=== PATIENT | male | born 1950 | race Caucasian/White ===

== ENCOUNTER 2018-10-02 13:19 | Inpatient (IN) | payer MEDICARE ==
[~2018-10-02] VITALS: Ht 180.3 cm; Wt 78.5 kg
--- NOTE | 2018-10-02 13:32 | NUR ---
DR VO AT BEDSIDE FOR EVAL.
[2018-10-02] MEDS ORDERED: IV NS 0.9% 250 ML IV ONE ×2 (13:33→15:25)
[2018-10-02] MEDS ORDERED: CT SWABBABLE VALVE TRANS SET 1 EA INFUS.SET MC ONE ×2 (13:33→15:25)
[2018-10-02] MEDS ORDERED: IOHEXOL-350 100 ML VIAL IV ONE ×2 (13:33→15:25)
[2018-10-02 14:00] LABS: BASOPHILS % (AUTO) 0.2 % (0.0-2.0); HEMATOCRIT 39 % (39-51); HEMOGLOBIN 12.2 g/dL (13.5-17.5); LYMPHOCYTES # (AUTO) 0.3 /CMM (0.8-4.8); LYMPHOCYTES % (AUTO) 1.7 % (20.0-44.0); MEAN CORPUSCULAR HGB CONC 31 g/dl (31.0-36.0); MEAN CORPUSCULAR VOLUME 88 fL (80-96); MONOCYTES # (AUTO) 0.7 /CMM (0.1-1.30); MONOCYTES % (AUTO) 3.4 % (2.0-12.0); NEUTROPHILS # (AUTO) 18.6 /CMM (1.8-8.9); NEUTROPHILS % (AUTO) 94.7 % (43.0-81.0); PLATELET COUNT (AUTO) 182 /CMM (150-450); WHITE BLOOD COUNT (AUTO) 19.6 K/uL (4.3-11.0)
[2018-10-02 14:14] LABS: BILIRUBIN,DIRECT 0.6 mg/dL (0.0-0.2); BILIRUBIN,TOTAL 1.1 mg/dL (0.2-1.0); CALCIUM, SERUM 9.2 mg/dL (8.5-10.1); TOTAL PROTEIN, SERUM 7.1 g/dL (6.4-8.2)
[2018-10-02 14:17] LABS: CREATININE 8.4 mg/dL (0.6-1.3)
[2018-10-02] MEDS: CALCIUM CHLORIDE 1,000 MG/10 ML DISP.SYRIN IV ONE ×2 (14:25→14:53)
[2018-10-02] MEDS: INSULIN REGULAR, HUMAN 100 UNIT/ML 10 ML VIAL IV ONE ×2 (14:27→14:54)
--- NOTE | 2018-10-02 14:27 | NUR ---
DR MOREAU AT BEDSIDE FOR EVAL.
[2018-10-02] MEDS ORDERED: SODIUM BICARBONATE SYR 50 MEQ/50 ML DISP.SYRIN IV ONE (14:30)
[2018-10-02] MEDS ORDERED: DEXTROSE 50%-WATER 50 ML DISP.SYRIN IV ONE (14:30)
[2018-10-02] MEDS ORDERED: CALCIUM CHLORIDE 1,000 MG/10 ML DISP.SYRIN ONE (14:40)
[2018-10-02] MEDS ORDERED: DEXTROSE 50%-WATER 50 ML DISP.SYRIN ONE (14:40)
[2018-10-02] MEDS ORDERED: SODIUM BICARBONATE SYR 50 MEQ/50 ML DISP.SYRIN ONE (14:40)
[2018-10-02] MEDS ORDERED: INSULIN REGULAR, HUMAN 100 UNIT/ML 10 ML VIAL ONE (14:42)
--- NOTE | 2018-10-02 15:10 | NUR ---
PER MD MOREAU CANCELED CODE STROKE AT 1442
--- NOTE | 2018-10-02 15:19 | NUR ---
CALLED NURSING SUP REQUESTED CHADD BED FOR THIS PATIENT
--- NOTE | 2018-10-02 15:20 | NUR ---
PT TO RADIOLOGY FOR CTA BRAIN AND CAROTID VIA JAMES
--- NOTE | 2018-10-02 15:58 | NUR ---
DR MOREAU MADE AWARE OF PT'S B/P. AWAITING ON NEW ORDER.
[2018-10-02] MEDS ORDERED: LABETALOL HCL IV 100MG VIAL IV ONE (16:00)
[2018-10-02] MEDS ORDERED: LABETALOL 20 MG/4 ML VIAL ONE (16:01)
--- NOTE | 2018-10-02 16:10 | NUR ---
Julián rocha in [facility] - 10/02/18 at 1620 by JULIO PT ADMIT TO ROOM 118-1 DX DIZZINESS R/O STROKE ACCEPTED BARBARA
--- NOTE | 2018-10-02 16:20 | NUR ---
PT ADMIT TO CHADD BED 118-1 DX NSTEMI, RENAL FAILURE, HYPERKALEMIA ACCEPTED KERZUMA DO
--- NOTE | 2018-10-02 16:22 | NUR ---
REPORT GIVEN TO AARON LYN. PT AWAITING TRANSFER TO FLOOR.
[2018-10-02] MEDS ORDERED: Z GUARD REMEDY 2 OZ OINT TP PRN (16:30)
[2018-10-02] MEDS ORDERED: ONDANSETRON HCL/PF 4 MG/2 ML VIAL IVP PRN (16:30)
[2018-10-02] MEDS ORDERED: ZOLPIDEM TARTRATE 5 MG TABLET PO PRN (16:30)
[2018-10-02] MEDS ORDERED: SODIUM POLYSTYRENE SULF. PWD 15 GM UDC PO ONE (16:30)
[2018-10-02] MEDS ORDERED: MAGNESIUM HYDROXIDE 30 ML UDC PO PRN (16:30)
[2018-10-02] MEDS ORDERED: ACETAMINOPHEN 325 MG TABLET PO PRN (16:30)
[2018-10-02] MEDS ORDERED: MAG HYDROX/AL HYDROX/SIMETH 30 ML UDC PO PRN (16:30)
[2018-10-02 17:00] VITALS: BP 134/79
[2018-10-02 19:45] VITALS: BP 155/99
[2018-10-02 20:00] VITALS: BP 155/99
--- NOTE | 2018-10-02 20:05 | NUR ---
CHADD/WORKDAY DIRECTOR PT IS HERE WITH PULMONARY EDEMA, PT MISSED 2 WEEKS OF HD. PT TO HAVE HD CURRENTLY WITH HD NURSE HERE NOW. ALL CURRENT LABS WERE GIVEN.
--- NOTE | 2018-10-02 20:30 | NUR ---
CHADD/LIMEROCK TOWER LOADER PT'S TROP INCREASED TO 10.238 FROM 9.63, PLACED CALL OUT TO COAT ROOM ATTENDANT WHO SAID TO GIVE PT ASPIRIN 325MG X 1 NOW THEN TO HAVE CARDIOLOGY FOLLOW UP WITH PT. ORDERS NOTED AND CARRIED OUT
[2018-10-02] MEDS ORDERED: ALTEPLASE 100 MG/VIAL VIAL IV ONE (21:00)
[2018-10-02] MEDS ORDERED: ALTEPLASE CATHFLO 2 MG/VIAL ONE (21:07)
--- NOTE | 2018-10-02 21:10 | NUR ---
CHADD/MARKETING FINANCIAL ANALYST HD NURSE SAID THAT LINE IS SLUGGISH, WHICH REQUIRED TO BE DECLOTTED WITH ALTAPAISE AND HEPARIN. ORDERS WERE NOTED BY CHARGE NURSE ABD FAXED OVER TO [facility]. HD NURSE WAS GIVEN MEDICATION.
[2018-10-02] MEDS: ASPIRIN EC 325 MG TABLET.DR PO SCH (21:13)
[2018-10-02] MEDS ORDERED: HEPARIN SODIUM, PORCINE 5000 UNITS/1 ML VIAL IV ONE (21:30)
--- NOTE | 2018-10-02 22:55 | NUR ---
CHADD/ANDRE PT COMPLAINED HE LOST HIS CELLPHONE, LOOKED THROUGH BELONGINGS AND DID NOT FIND IT. Addendum: 10/03/18 at 0154 by BROOK COLLAZO LVN NOT NOTED ON BELONGINGS
[2018-10-03] VITALS (13 sets, daily range): BP systolic 102–169; BP diastolic 57–98
[2018-10-03 00:22] LABS: ABG OXYGEN SATURATION 97.2 % (92.0-98.5); ABG PCO2 19.4 mmHg (35.0-45.0); ABG PH 7.464 (7.350-7.450); AaDO2 289.5 mmHg; COHb 0.3 % (0.5-1.5); MetHb 0.4 % (0.0-1.5); O2Hb 96.5 % (94.0-97.0); SITE, ABG Right Radial; VENT MODE, BG SM
--- NOTE | 2018-10-03 00:30 | NUR ---
CHADD/AIRWORTHINESS SAFETY INSPECTOR ABG AND STAT CHEST XRAY WERE DONE DUE TO PT'S LOW SAT'S, THEN CALLED MD WITH RESULTS. PLACED PT ON SIMPLE MASK, ALONG WITH CONTINUOUS PULSE OX. ALSO PLACED BEUR HUGGER DUE TO FINGERS WERE BLUISH COLOR. ALSO GOT ORDER FOR BREATHING TREATMENT.
[2018-10-03] MEDS ORDERED: ALBUTEROL FS 2.5 MG/0.5 ML VIAL.NEB ONE (00:56)
[2018-10-03] MEDS ORDERED: IPRATROPIUM NEB FS 0.5 MG/2.5 ML AMPUL.NEB ONE (00:56)
[2018-10-03] MEDS: ALBUTEROL FS 2.5 MG/0.5 ML VIAL.NEB NEB PRN (00:58)
[2018-10-03] MEDS ORDERED: IPRATROPIUM NEB FS 0.5 MG/2.5 ML AMPUL.NEB NEB PRN (01:00)
--- NOTE | 2018-10-03 01:42 | NUR ---
CHADD/FUNDS TRANSFER CLERK PT COMPLAINED OF PAIN RATED 7/10 TO BACK AREA. NORCO 1 TAB GIVEN FOR THIS. CALL LIGHT WITHIN REACH. WILL MONITOR PT'S PAIN.
[2018-10-03] MEDS: HYDROCODONE/APAP 5/325MG 1 EACH TABLET PO PRN ×2 (02:17→06:23)
--- NOTE | 2018-10-03 06:23 | NUR ---
CHADD/PICKED EDGE SEWING MACHINE OPERATOR PT COMPLAINED OF PAIN RATED 7/10 TO BACK AREA. NORCO 1 TAB GIVEN FOR THIS. CALL LIGHT WITHIN REACH. WILL MONITOR PT'S PAIN.
[2018-10-03] MEDS ORDERED: PANTOPRAZOLE 40 MG TABLET.DR PO SCH (07:30)
--- NOTE | 2018-10-03 08:00 | NUR ---
On am assessment pt found to be lethargic, wakes up to repeated sternal rub. Very confused, oriented to self only. Follows commands, but drifts off to sleep quickly. NIHSS stk scale performed but limited due to bilateral upper and lower extremities shaky and weak. Dr Jo by bedside. Pt condition and labs from yesterday discussed with Dr Henry, this am labs still pending. As per dr Nina, ALOC due to elevated BUN/CR, not CVA. pt assisted with breakfast. but noted to cough frequently, remaining of breakfast held. will try post HD when more alert.
[2018-10-03 08:14] LABS: BASOPHILS % (AUTO) 0.3 % (0.0-2.0); EOSINOPHILS % (AUTO) 0.7 % (0.0-6.0); HEMATOCRIT 34 % (39-51); LYMPHOCYTES # (AUTO) 0.2 /CMM (0.8-4.8); LYMPHOCYTES % (AUTO) 1.3 % (20.0-44.0); MEAN CORPUSCULAR HGB CONC 32 g/dl (31.0-36.0); MEAN CORPUSCULAR VOLUME 85 fL (80-96); MONOCYTES # (AUTO) 0.5 /CMM (0.1-1.30); MONOCYTES % (AUTO) 3.2 % (2.0-12.0); NEUTROPHILS # (AUTO) 15.6 /CMM (1.8-8.9); NEUTROPHILS % (AUTO) 94.5 % (43.0-81.0); PLATELET COUNT (AUTO) 84 /CMM (150-450); RED BLOOD CELL COUNT(AUTO) 4.04 MIL/uL (4.5-6.0); WHITE BLOOD COUNT (AUTO) 16.5 K/uL (4.3-11.0)
[2018-10-03 08:33] LABS: CHOLESTEROL 141 mg/dL (<200); LDL 65 mg/dL (0-99); TRIGLYCERIDES 260 mg/dL (30-150)
[2018-10-03 08:42] LABS: CALCIUM, SERUM 8.2 mg/dL (8.5-10.1); CARBON DIOXIDE 14 mmol/L (21-32); CHLORIDE 108 mmol/L (98-107); GLUCOSE 91 mg/dL (74-106); MAGNESIUM 2.4 mg/dL (1.8-2.4); POTASSIUM 5.6 mmol/L (3.5-5.1); SODIUM SERUM 142 mmol/L (136-145)
[2018-10-03 08:44] LABS: CREATININE 8.4 mg/dL (0.6-1.3); UREA NITROGEN, BLOOD 128 mg/dL (7-18)
[2018-10-03 08:46] LABS: BAND % (MANUAL) 2 % (0.0-5.0); EOSINOPHILS % (MANUAL) 1 % (0-4); LYMPHOCYTES % (MANUAL) 3 % (16-48); MONOCYTES % (MANUAL) 2 % (0-11.0); NEUTROPHILS % (MANUAL) 92 (42-76)
[2018-10-03 08:51] LABS: HDL CHOLESTEROL < 10 mg/dL (40-60)
[2018-10-03] MEDS: ASPIRIN EC 325 MG TABLET.DR PO SCH (09:52)
[2018-10-03] MEDS ORDERED: HEPARIN INFUSION/D5W 500 ML IV PRN (10:00)
--- NOTE | 2018-10-03 10:00 | NUR ---
Dr. Truong here to see pt. Heparin gtt ordered ACS protocol field out and faxed to the pharmacy. Dr Truong notified that patient platelets are low, but Dr Truong with heparin gtt initiation.
--- NOTE | 2018-10-03 10:20 | NUR ---
Due to pt weigh on ACS protocol bolus 6,160 units and hourly infusion 1,320 units ate above that max. Per Pharmacy request bolus adjusted to 5000 and rate to 1200. refaxed to pharmacy.
[2018-10-03 10:50] LABS: THYROID STIMULATING HORMONE 1.092 uIU/mL (0.358-3.74)
--- NOTE | 2018-10-03 11:00 | NUR ---
Juany for pharmacy called. as per Dr. Truong D/C Heparin gtt due to low platelets. Heparin gtt will not be initiated.
[2018-10-03 11:20] LABS: ALBUMIN 2.3 g/dL (3.4-5.0); BILIRUBIN,DIRECT 0.6 mg/dL (0.0-0.2); BILIRUBIN,TOTAL 1.7 mg/dL (0.2-1.0); TOTAL PROTEIN, SERUM 5.6 g/dL (6.4-8.2)
[2018-10-03] MEDS ORDERED: CEFTRIAXONE 1 G in IV D5W 50 ML IV SCH (12:00)
[2018-10-03] MEDS: METOPROLOL TARTRATE 25 MG TABLET PO SCH ×2 (12:00→18:00)
--- NOTE | 2018-10-03 12:00 | NUR ---
Pt was initiated on HD at 1100 am interrupted to to machine malfunction at 1200. no fluid taken off.
--- NOTE | 2018-10-03 12:40 | NUR ---
Pt noted to be mote lethargic and only wakes up due to painful stimuli. rr 40th and shallow. but upon awakening denied sob, denied chest pain. Dr. Severino notified ok to obtain abg.
--- NOTE | 2018-10-03 13:03 | NUR ---
ABG resulted discussed with Dr Navarro. Continue to monitor for now, reassess post HD.
[2018-10-03 13:07] LABS: ABG BASE EXCESS -8.9 mmol/L; ABG OXYGEN SATURATION 97.8 % (92.0-98.5); ABG PH 7.415 (7.350-7.450); ABG PO2 138.2 mmHg (75.0-100.0); AaDO2 193.6 mmHg; COHb 0.3 % (0.5-1.5); MetHb 0.7 % (0.0-1.5); O2Hb 96.8 % (94.0-97.0); SITE, ABG Left Radial; VENT MODE, BG 5l nc
--- NOTE | 2018-10-03 16:01 | NUR ---
Post hd pt continues to be extremely lethargic, with barb-stroke resp in . BP 102/59, hr 72 sat 100% on 4lnc. Dr. Herrera notified new orders obtained. Dr Navarro consulted ands see pt. He discussed pt situation with Dr Herrera. Dr Nina pageannetta.
--- NOTE | 2018-10-03 18:00 | NUR ---
1200 AND 1800 LOPRESSOR HELD PT TOO ALTERED TO TAKE PO.
--- NOTE | 2018-10-03 18:34 | NUR ---
CT head completed Pt. tolerated procedure well. Pt transferred to ICU room 257. Wallet, carrera and jurado sent to safe.
[2018-10-03] MEDS: AZITHROMYCIN 500 MG in IV D5W 250 ML IV SCH (18:42)
[2018-10-03] MEDS: PIPERACILLIN /TAZOBACTAM 2.25 G in IV D5W 50 ML IV SCH (18:44)
--- NOTE | 2018-10-03 18:50 | NUR ---
DURING REPOSITIONING PT APPEARS HOT TO TOUCH TEMP 102.5 RECTAL COOLING MEASURES INITIATED TYLENOL RECTAL ORDERED, PT. IS TO ALTERED TO TAKE PO. WILL ADMINISTER LITO.
[2018-10-03] MEDS ORDERED: ACETAMINOPHEN 650 MG/SUPP.RECT RC PRN (19:30)
--- NOTE | 2018-10-03 19:41 | NUR ---
PT MEDICATED WITH RECTAL TYLENOL. EMMANUEL UPDATED ORDER FOR VANCO IV PHARM. TO DOSE PLACED. NEPHROLOGY GROUP PAGED VIA EXCHANGE.
--- NOTE | 2018-10-03 20:00 | NUR ---
RN NOTES RECEIVED PT ASLEEP ON BED. NO ACUTE RESPIRATORY DISTRESS. WARM TO TOUCH, FEBRILE ON CORE TEMP. 102 DEG FHARENHEIGHT MOAN TO NAME. FOLLOWS COMMAND. BY SQUEEZING HAND AND TRIED TO RAISE BUE AND BLE. ZERO FLACC. NSR ON TELE MONITOR. IV SITE ON ERNESTO MIDLINE INTACT AND PATENT/ RCW HD CATH IS CLEANED AND DRY. COTNINEU TO MONITOR PATIENT FOR LETHARGY/TIA/NSTEMI LAST TROPONIN LEVEL WAS 7.921 D.Halie BREWER AWARE PER PREVIOUS NURSE. DNEIES CHEST PAIN. KEPT PT CLEAN AND COMFORTABLE IN BED. CALL LIGHT KEPT WITHIN EASY REACH. WILL CONTINUE TO MONITOR.
[2018-10-03] MEDS ORDERED: VANCOMYCIN 1 GM VIAL ONE (21:23)
[2018-10-03] MEDS ORDERED: VANCOMYCIN 1 GM in IV D5W 250ml IV SCH (22:00)
[2018-10-04] VITALS (53 sets, daily range): BP systolic 86–148; BP diastolic 39–88
[2018-10-04] MEDS: PIPERACILLIN /TAZOBACTAM 2.25 G in IV D5W 50 ML IV SCH ×3 (01:02→17:35)
--- NOTE | 2018-10-04 04:43 | NUR ---
RN NOTES BED BATH DONE DIALYSIS NURSE CAME ANS STARTED DIALYSIS. PT IS MORE AWAKE ALERT AND ORIENTED. VSS. WILL CONTINUE TO MONITOR.
[2018-10-04 04:44] LABS: BASOPHILS # (AUTO) 0.1 /CMM (0.0-0.2); BASOPHILS % (AUTO) 0.4 % (0.0-2.0); EOSINOPHILS % (AUTO) 0.3 % (0.0-6.0); HEMATOCRIT 36 % (39-51); HEMOGLOBIN 11.6 g/dL (13.5-17.5); LYMPHOCYTES # (AUTO) 0.4 /CMM (0.8-4.8); LYMPHOCYTES % (AUTO) 3.1 % (20.0-44.0); MEAN CORPUSCULAR HGB CONC 32 g/dl (31.0-36.0); MEAN CORPUSCULAR VOLUME 85 fL (80-96); MONOCYTES # (AUTO) 0.7 /CMM (0.1-1.30); MONOCYTES % (AUTO) 5.3 % (2.0-12.0); NEUTROPHILS # (AUTO) 12.2 /CMM (1.8-8.9); NEUTROPHILS % (AUTO) 90.9 % (43.0-81.0); RED BLOOD CELL COUNT(AUTO) 4.26 MIL/uL (4.5-6.0); WHITE BLOOD COUNT (AUTO) 13.5 K/uL (4.3-11.0)
[2018-10-04 04:50] LABS: PLATELET COUNT (AUTO) 34 /CMM (150-450)
[2018-10-04 04:57] LABS: ALBUMIN 1.8 g/dL (3.4-5.0); BILIRUBIN,TOTAL 2.2 mg/dL (0.2-1.0); CALCIUM, SERUM 7.8 mg/dL (8.5-10.1); MAGNESIUM 2.3 mg/dL (1.8-2.4); PHOSPHORUS 5.9 mg/dL (2.5-4.9); POTASSIUM 5.4 mmol/L (3.5-5.1); TOTAL PROTEIN, SERUM 5.2 g/dL (6.4-8.2)
[2018-10-04 05:01] LABS: CREATININE 7.8 mg/dL (0.6-1.3)
[2018-10-04 05:09] LABS: LYMPHOCYTES % (MANUAL) 3 % (16-48); MONOCYTES % (MANUAL) 3 % (0-11.0); NEUTROPHILS % (MANUAL) 94 (42-76)
[2018-10-04] MEDS: METOPROLOL TARTRATE 25 MG TABLET PO SCH ×2 (06:00)
--- NOTE | 2018-10-04 06:50 | NUR ---
RN NOTES 06:17 AM - RECEIVED A CALL FROM LAB REGARDING CRITICAL VALUE OF TROPONIN 8.[address] VILLANUEVA TO WAIT FOR AUTOMOTIVE SALES ASSOCIATE AND PRIMARY TO SEE THE HIP. 06:42 AM - WHEN DIALYSIS IS ABOUT TO FINISH PATIENT CONVERTED TO SVT 150'S - 160'S THEN ON AND OFF, DIALYSIS FINISHED AT 06:35 REMOVED 1500. PT STARTED TO GET LETHARGIC UNABLE TO FOLLOW COMMAND. INFORMED DR. BREWER REGARDING PATIENT STATUS AND EKG RESULT AND TROPONIN 8.129.
--- NOTE | 2018-10-04 07:00 | NUR ---
RN NOTES ENDORSED TO FOLLOW UP MD REGARDING PATIENT METOPROLOL, UNABLE TO GIVE PO MEDS DUE TO LETHARGY / HIGH ASPIRATION.
[2018-10-04 08:01] LABS: ABG BASE EXCESS -5.1 mmol/L; ABG OXYGEN SATURATION 96.5 % (92.0-98.5); ABG PCO2 24.9 mmHg (35.0-45.0); ABG PH 7.456 (7.350-7.450); ABG PO2 93.8 mmHg (75.0-100.0); COHb 0.7 % (0.5-1.5); O2Hb 94.9 % (94.0-97.0); SITE, ABG Left Brachial; VENT MODE, BG 4L/MIN N/C
[2018-10-04] MEDS ORDERED: FEE PK DOSING 1 MIN EA MC ONE (08:10)
--- NOTE | 2018-10-04 08:18 | NUR ---
WOUND CARE CONSULT: PT IS IMMOBILE WITH DUSKY COLOR TO BILATERAL FEET AND PURPLE DRY LESIONS TO RT ANTERIOR LOWER LEG AND LEFT LATERAL LOWER LEG, PRESENT ON ADMISSION. RT BUTTOCK BRUISE AND LEFT PLANTAR FISSURE NOTED, NO DRAINAGE OR ODOR. RECOMMENDATIONS MADE FOR SKIN PROTECTION. DISCUSSED WITH NURSING STAFF. FIRST STEP LOW AIRLOSS MATTRESS ORDERED. WILL SEE PRN. ACRTER IN AGREEMENT WITH PLAN OF CARE. Addendum: 10/04/18 at 0822 by NATALIE BOLIVAR WNDNU Amended: Links added.
[2018-10-04] MEDS: LACTOBACILLUS RHAMNOSUS GG 1 EACH CAP.SPRINK PO SCH ×2 (09:00→17:00)
[2018-10-04 09:15] LABS: CALCIUM, SERUM 8.2 mg/dL (8.5-10.1); CREATININE 6.8 mg/dL (0.6-1.3); POTASSIUM 5.4 mmol/L (3.5-5.1)
[2018-10-04] MEDS ORDERED: PANTOPRAZOLE 40 MG VIAL IV SCH (11:00)
[2018-10-04] MEDS: ACETAMINOPHEN 650 MG/SUPP.RECT RC PRN (11:56)
--- NOTE | 2018-10-04 12:00 | NUR ---
PT SPIKED A TEMP OF 101.1 RECTAL TYLENOL AND COOLING MEASURES INITIATED.
[2018-10-04] MEDS: AZITHROMYCIN 500 MG in IV D5W 250 ML IV SCH (12:12)
--- NOTE | 2018-10-04 12:20 | NUR ---
BLOOD CULT. PRELIMINARY RESULT SHOW GR.POS COCCI. EMMANUEL NOTIFIED NO NEW ORDERS. PT ALREADY ON VANCO.
[2018-10-04 12:38] LABS: D-DIMER > 35.20 mg/L(FEU (0.17-0.50)
--- NOTE | 2018-10-04 15:45 | NUR ---
PT OPENS EYES SPONTANEOUSLY ABLE TO ANSWER SIMPLE QUESTIONS, FOLLOWS COMMANDS BUT VERY WEAK.
[2018-10-04] MEDS: VANCOMYCIN 500 MG in IV D5W 100 ML IV PRN (15:46)
--- NOTE | 2018-10-04 16:28 | NUR ---
DR GRANDA NOTIFIED THAT PT IS OPENS EYES SPONTANEOUSLY. FOLLOWS COMMANDS. OK TO DC STAT CT FOR NOW.
--- NOTE | 2018-10-04 20:30 | NUR ---
RN NOTES RECEIVED PT RESTING ON BED/ BREATHING EVEN AND UNLABORED. AOX2 ABLE TO FOLLOW COMMAND. ABLE TO MOVE BUT WEAKNESSES PRESENT ON BUE AND BLE . ST 110'S - 120'S ON TELEMONITOR. AFEBRILE TEMP 98.9 AT THIS TIME WILL CONTINUE TO MONITOR DUE TO ON AND OFF FEVER. ERNESTO MIDLINE INTACT AND PATENT RCW HD CATH CLEAN AND DRY. NO ACTIVE BLEEDING SHOWS. SKIN CARE PROVIDED. KEPT PT CLEAN AND COMFORTABLE IN BED. BED LOCKED AND IN LOWEST POSSIBLE POSITION. WILL CONTINUE TO MONITOR.
--- NOTE | 2018-10-04 20:40 | NUR ---
RN NOTES AFIB WITH RVR ON TELE MONITOR 110'S TO 120'S. NO ACUTE RESPIRATORY DISTRESS. PT IS AOX3 DENIES CHEST PAIN, DIZZINESS. NO N/V/D.
[2018-10-05] VITALS (41 sets, daily range): BP systolic 97–159; BP diastolic 55–93
[2018-10-05] MEDS: PIPERACILLIN /TAZOBACTAM 2.25 G in IV D5W 50 ML IV SCH ×2 (01:03→09:07)
[2018-10-05 04:50] LABS: ALBUMIN 1.7 g/dL (3.4-5.0); BILIRUBIN,TOTAL 2.3 mg/dL (0.2-1.0); CALCIUM, SERUM 7.7 mg/dL (8.5-10.1); MAGNESIUM 2.3 mg/dL (1.8-2.4); PHOSPHORUS 6.9 mg/dL (2.5-4.9); POTASSIUM 5.7 mmol/L (3.5-5.1); TOTAL PROTEIN, SERUM 5.3 g/dL (6.4-8.2)
[2018-10-05 05:14] LABS: HEMATOCRIT 37 % (39-51); MEAN CORPUSCULAR HGB CONC 33 g/dl (31.0-36.0); MEAN CORPUSCULAR VOLUME 84 fL (80-96); RED BLOOD CELL COUNT(AUTO) 4.38 MIL/uL (4.5-6.0); WHITE BLOOD COUNT (AUTO) 13.6 K/uL (4.3-11.0)
[2018-10-05 05:15] LABS: BASOPHILS % (AUTO) 0.3 % (0.0-2.0); EOSINOPHILS % (AUTO) 0.3 % (0.0-6.0); LYMPHOCYTES % (AUTO) 7.2 % (20.0-44.0); MONOCYTES % (AUTO) 6.6 % (2.0-12.0); NEUTROPHILS % (AUTO) 85.6 % (43.0-81.0)
[2018-10-05 05:16] LABS: PLATELET COUNT (AUTO) 18 /CMM (150-450)
[2018-10-05 06:21] LABS: LYMPHOCYTES % (MANUAL) 5 % (16-48); MONOCYTES % (MANUAL) 3 % (0-11.0); NEUTROPHILS % (MANUAL) 92 (42-76)
--- NOTE | 2018-10-05 06:24 | NUR ---
RN NOTES INFORMED DR. TREJO ABOUT CRITICAL VALUE OF TROPONIN 5.401 AND PLATELET 18 WITH NEW ORDER TO TRANSFUSE I UNIT OF PLATELET FOR NOW. CALLED IVETTE BELTRAN BROTHER FOR CONSENT . AGREED. NO ACTIVE BLEEDING PRESENT. PT IS AOX2 STILL DROWSY. SATURATION REMAINED 100%. AFIB WITH RVR ON TELE MONITOR. ANURIC. KEPT PT CLEAN AND DRY.WILL ENDORSED CONTINUITY OF CARE TO AM NURSE.
[2018-10-05 08:13] LABS: ABG BASE EXCESS -4.3 mmol/L; ABG OXYGEN SATURATION 97.4 % (92.0-98.5); ABG PCO2 25.3 mmHg (35.0-45.0); ABG PH 7.467 (7.350-7.450); ABG PO2 106.2 mmHg (75.0-100.0); COHb 0.5 % (0.5-1.5); MetHb 0.4 % (0.0-1.5); O2Hb 96.5 % (94.0-97.0); SITE, ABG Right Radial; VENT MODE, BG 3L NC
[2018-10-05] MEDS: FAMOTIDINE/PF INJ 20 MG/2 ML VIAL IV SCH ×2 (08:56→21:00)
[2018-10-05] MEDS: LACTOBACILLUS RHAMNOSUS GG 1 EACH CAP.SPRINK PO SCH ×2 (08:56→16:46)
[2018-10-05] MEDS: CARVEDILOL 3.125 MG TABLET PO SCH ×2 (08:57→21:01)
[2018-10-05] MEDS: ACETAMINOPHEN 650 MG/SUPP.RECT RC PRN (09:07)
--- NOTE | 2018-10-05 09:37 | NUR ---
RN NOTE 0715: Received patient drowsy/lethargic. A/Ox2. No c/o discomfort at this time. On 3LPM of O2 via NC. MARCELO midline intact. With RCW HD cath intact. Afib 120's on the monitor. Noted with fingers and toes cyanotic, covered them with blankets. 0800: S/E by Dr. Truong, with order of Coreg. 0830: Blood bank called and said platelet will be sent tomorrow, changed order to stat. 0930: Able to take crushed meds with apple sauce, awaiting ST swallow eval. Tylenol supp given for temp 100.4. Applied DVT pumps. 1000: Still with temp 100.4, Afib 90's. Rendered cooling measures, will continue to monitor.
--- NOTE | 2018-10-05 13:53 | NUR ---
RN NOTE Platelet blood transfusion ongoing, patient tolerated well. No c/o any adverse reactions from BT. VSS at this time, still Afib 100's.
--- NOTE | 2018-10-05 14:17 | NUR ---
RN NOTE Called Dr. Grimes re: the Stap aureus, with order for consent for HD cath removal. Spoke with Efrain brother(via phone) and agreed witnessed by another nurse. Per MD, he will arrange the procedure tomorrow.
[2018-10-05] MEDS ORDERED: ALTEPLASE CATHFLO 2 MG/VIAL IV ONE (16:30)
[2018-10-05] MEDS: VANCOMYCIN 500 MG in IV D5W 100 ML IV PRN (16:45)
--- NOTE | 2018-10-05 18:24 | NUR ---
RN NOTE 1700: HD nurse reported HD therapy for today not finished due to sluggish line, nephtylor CARTER aware, with order to give Activase, given by HD nurse. 1800: No any significant changes noted at this time. Will endorse to next shift.
[2018-10-05] MEDS ORDERED: ACETAMINOPHEN 325 MG TABLET PO ONE (18:30)
[2018-10-05] MEDS ORDERED: diphenhydrAMINE HCL 50 MG/ML VIAL IV ONE (18:30)
[2018-10-05 19:05] LABS: BASOPHILS % (AUTO) 0.2 % (0.0-2.0); EOSINOPHILS % (AUTO) 0.4 % (0.0-6.0); HEMATOCRIT 34 % (39-51); HEMOGLOBIN 10.8 g/dL (13.5-17.5); LYMPHOCYTES # (AUTO) 1.2 /CMM (0.8-4.8); LYMPHOCYTES % (AUTO) 8.1 % (20.0-44.0); MEAN CORPUSCULAR HGB CONC 32 g/dl (31.0-36.0); MEAN CORPUSCULAR VOLUME 84 fL (80-96); MONOCYTES # (AUTO) 0.9 /CMM (0.1-1.30); MONOCYTES % (AUTO) 5.6 % (2.0-12.0); NEUTROPHILS # (AUTO) 13.1 /CMM (1.8-8.9); NEUTROPHILS % (AUTO) 85.7 % (43.0-81.0); RED BLOOD CELL COUNT(AUTO) 3.99 MIL/uL (4.5-6.0); WHITE BLOOD COUNT (AUTO) 15.3 K/uL (4.3-11.0)
[2018-10-05 19:09] LABS: PLATELET COUNT (AUTO) 45 /CMM (150-450)
--- NOTE | 2018-10-05 19:30 | NUR ---
Received patient drowsy/lethargic oriented x 2.Denies pain.Respiration even and unlabored with O2 3L NC SPO2 100%.Afib 124 non sustaining.Right upper chest HD cath intact.NS at TKO infusing via ERNESTO Midline .Temp 100 cooling measures done.Turned and repositioned.
[2018-10-05 19:53] LABS: LYMPHOCYTES % (MANUAL) 7 % (16-48); NEUTROPHILS % (MANUAL) 89 (42-76)
[2018-10-05 19:54] LABS: MONOCYTES % (MANUAL) 4 % (0-11.0)
--- NOTE | 2018-10-05 20:30 | NUR ---
Patient [address] 245 no transfusion indicated.
[2018-10-05 20:34] LABS: D-DIMER > 35.20 mg/L(FEU (0.17-0.50)
[2018-10-05 20:36] LABS: PLATELET COUNT (AUTO) 45 /CMM (150-450)
[2018-10-06] VITALS (24 sets, daily range): BP systolic 105–147; BP diastolic 51–89
--- NOTE | 2018-10-06 | NUR ---
Patient incontinent of urine.Perineal care done.Bed bath done.Complete linens changed.Turned and repositioned.
[2018-10-06] MEDS: ACETAMINOPHEN 650 MG/SUPP.RECT RC PRN (01:32)
--- NOTE | 2018-10-06 02:30 | NUR ---
Patient moaning and grimacing.Pain medication administered with relief.Turned and repositioned.
[2018-10-06 04:49] LABS: BASOPHILS # (AUTO) 0.1 /CMM (0.0-0.2); BASOPHILS % (AUTO) 0.3 % (0.0-2.0); EOSINOPHILS % (AUTO) 0.3 % (0.0-6.0); HEMATOCRIT 33 % (39-51); HEMOGLOBIN 10.6 g/dL (13.5-17.5); LYMPHOCYTES # (AUTO) 1.6 /CMM (0.8-4.8); LYMPHOCYTES % (AUTO) 10.5 % (20.0-44.0); MEAN CORPUSCULAR HGB CONC 32 g/dl (31.0-36.0); MEAN CORPUSCULAR VOLUME 85 fL (80-96); MONOCYTES # (AUTO) 1.1 /CMM (0.1-1.30); MONOCYTES % (AUTO) 7.6 % (2.0-12.0); NEUTROPHILS % (AUTO) 81.3 % (43.0-81.0); RED BLOOD CELL COUNT(AUTO) 3.94 MIL/uL (4.5-6.0); WHITE BLOOD COUNT (AUTO) 14.8 K/uL (4.3-11.0)
[2018-10-06 05:09] LABS: ALBUMIN 1.5 g/dL (3.4-5.0); BILIRUBIN,TOTAL 1.9 mg/dL (0.2-1.0); CALCIUM, SERUM 7.7 mg/dL (8.5-10.1); MAGNESIUM 2.6 mg/dL (1.8-2.4); TOTAL PROTEIN, SERUM 5.2 g/dL (6.4-8.2)
[2018-10-06 05:10] LABS: PLATELET COUNT (AUTO) 31 /CMM (150-450)
[2018-10-06 05:20] LABS: FERRITIN 721 ng/mL (8-388)
[2018-10-06 05:23] LABS: CREATININE 9.3 mg/dL (0.6-1.3); PHOSPHORUS 8.4 mg/dL (2.5-4.9)
[2018-10-06 05:45] LABS: IRON, SERUM 24 ug/dl (50-175); TOTAL IRON BINDING CAPACITY 116 ug/dl (250-450)
[2018-10-06 06:06] LABS: LYMPHOCYTES % (MANUAL) 7 % (16-48); MONOCYTES % (MANUAL) 4 % (0-11.0); NEUTROPHILS % (MANUAL) 89 (42-76)
--- NOTE | 2018-10-06 06:20 | NUR ---
Patient resting.No apparent distress noted.Afib controlled.VS stable.Incontinent care done. Turned and repositioned.AM labs resulted and critical value relayed to Raymond Torre NP. Made aware patient on HD MWF and there's a parameter for platelet transfusion per Dr. Anthnoy Jade.No new orders received.Will endorse to day shift RN for continuity of care.
--- NOTE | 2018-10-06 07:10 | NUR ---
DIGITAL PRODUCTION OPERATOR INITIAL NOTES PT RECEIVED RESTING IN BED, LETHARGIC. A/O X2. HE DENIES ANY SOB, OR PAIN AT THIS TIME. RIGHT SUBCLAVIAN SARAI CATH NOTED. PT SCHEDULED FOR HD AND REMOVAL OF CATH. CONSENTS OBTAINED FROM PERVIOUS RN. RIGHT UPPER ARM MIDLINE NOTED TO BE PATENT AND INTACT. NO REDNESS OR SIGNS OF INFILTRATION NOTED. CYANOSIS NOTED TO PT'S FINGERS AND TOES. PT NOTED TO BE AFIB (CONTROLLED) ON THE MONITOR WITH HR SUSTAINING IN THE HIGH 90S LOW 100S. HE DENIES ANY CHEST PAIN. BED IN LOW LOCKED POSITION, SIDE RAILS UP X2, CALL LIGHT WITHIN REACH. WILL CONTINUE TO MONITOR
[2018-10-06] MEDS: LACTOBACILLUS RHAMNOSUS GG 1 EACH CAP.SPRINK PO SCH ×2 (08:32→17:00)
[2018-10-06] MEDS: FAMOTIDINE/PF INJ 20 MG/2 ML VIAL IV SCH ×2 (08:32→20:07)
[2018-10-06] MEDS: CARVEDILOL 3.125 MG TABLET PO SCH ×2 (08:39→20:07)
--- NOTE | 2018-10-06 11:29 | NUR ---
ICR RN NOTES: HD PT S/P HD. NO FLUIDS REMOVED JUST WASHED OUT. VSS AT THIS TIME. PER PHARMACIST "PT DOES NOT NEED VANCO DOSE NOTHING WAS REMOVED". WILL CONTINUE TO MONITOR
--- NOTE | 2018-10-06 13:01 | NUR ---
EXHAUST EMISSIONS AUTOMOTIVE TECHNICIAN NOTES: HD CATH REMOVAL HD SARAI CATH REMOVED AT BEDSIDE BY DR. WHITE. PRESSURE APPLIED TO SITE FOR 10MIN. NO BLEEDING NOTED AT THIS TIME
--- NOTE | 2018-10-06 14:23 | NUR ---
ICU R NOTES: PERIPHERAL CYANOSIS PT'S FINGERTIPS AND TOES NOTED TO BE CYANOTIC. DR. ARCE MADE AWARE. PER MD "THE CYANOSIS IS PRESUMED TO BE CARDIAC VASCULAR ISSUES AND FURTHER CO MORBIDITIES. I WILL HAVE DR FU SEE HIM TOMORROW"
[2018-10-06] MEDS: CEFTRIAXONE 1 G in IV D5W 50 ML IV SCH (17:46)
--- NOTE | 2018-10-06 18:53 | NUR ---
BULB INSPECTOR CLOSING NOTES: PT REMAINS STABLE. ALL NEEDS MET DURING SHIFT AND ORDERS CARRIED OUT ACCORDINGLY. ALL DUE MEDS GIVEN. PT REPOSITIONED NAD TURNED PER PROTOCOL. VSS. MIDLINE REMAINS PATENT AND INTACT. WILL ENDORSE TO NIGHTSHIFT RN FOR SARINA
--- NOTE | 2018-10-06 19:30 | NUR ---
WEB ANALYTICS DEVELOPER INTIAL SHIFT NOTES RECEIVED PATIENT IN BED, ASLEEP, EASILY WOKEN TO NAME. PATIENT A/O X2, BUT LETHARGIC. ON O2 VIA NC @ 3LPM, TOLERATING WELL, BREATHING EVEN AND NONLABORED, FREE FROM ANY S/S OF RESPIRATORY DISTRESS. BEDSIDE TELEMETRY MONITORING SHOWING SINUS RHYTHM WITH OCCASIONAL PVCs AND PACs. HOB KEPT ELEVATED FOR ASPIRATION PRECAUTIONS. ERNESTO MIDLINE PATENT AND INTACT. WILL CONTINUE TO CLOSELY MONITOR THE PATIENT
[2018-10-07] VITALS (15 sets, daily range): BP systolic 118–157; BP diastolic 67–97
[2018-10-07] MEDS: ACETAMINOPHEN 650 MG/SUPP.RECT RC PRN (02:12)
[2018-10-07 04:32] LABS: BASOPHILS # (AUTO) 0.1 /CMM (0.0-0.2); BASOPHILS % (AUTO) 0.9 % (0.0-2.0); EOSINOPHILS % (AUTO) 0.4 % (0.0-6.0); HEMATOCRIT 33 % (39-51); HEMOGLOBIN 10.7 g/dL (13.5-17.5); LYMPHOCYTES # (AUTO) 1.4 /CMM (0.8-4.8); LYMPHOCYTES % (AUTO) 8.9 % (20.0-44.0); MEAN CORPUSCULAR HGB CONC 32 g/dl (31.0-36.0); MEAN CORPUSCULAR VOLUME 84 fL (80-96); MONOCYTES # (AUTO) 1.1 /CMM (0.1-1.30); MONOCYTES % (AUTO) 6.8 % (2.0-12.0); NEUTROPHILS # (AUTO) 13.4 /CMM (1.8-8.9); RED BLOOD CELL COUNT(AUTO) 3.98 MIL/uL (4.5-6.0); WHITE BLOOD COUNT (AUTO) 16.2 K/uL (4.3-11.0)
[2018-10-07 04:54] LABS: CALCIUM, SERUM 7.8 mg/dL (8.5-10.1); MAGNESIUM 2.7 mg/dL (1.8-2.4); POTASSIUM 5.8 mmol/L (3.5-5.1)
[2018-10-07 05:00] LABS: CREATININE 7.8 mg/dL (0.6-1.3)
[2018-10-07 05:01] LABS: PHOSPHORUS 9.5 mg/dL (2.5-4.9)
[2018-10-07 05:02] LABS: PLATELET COUNT (AUTO) 35 /CMM (150-450)
[2018-10-07 05:27] LABS: LYMPHOCYTES % (MANUAL) 6 % (16-48); MONOCYTES % (MANUAL) 4 % (0-11.0); NEUTROPHILS % (MANUAL) 90 (42-76)
--- NOTE | 2018-10-07 07:00 | NUR ---
RN NOTES RECEIVED PATIENT ON BED, PATIENT, ORIENTED TO HIS NAME, NODS TO YES AND NO QUESTION , LETHARGIC, ON 3L O2 N/C , NO SOB NOTED, RESPIRATION EVEN AND UNLABORED, ON TELE A.FIB WITH PVC'S AND PAC'S , HR IN 90'S , HOB ELEVATED, ON ASPIRATION PRECAUTIONS. R UPPER ARM MIDLINE SITE CLEAN , DRY AND INTACT, SR UP x3, CALL LIGHT WITH EASY REACH , CONTINUE TO MONITOR .
[2018-10-07 08:08] LABS: IMMUNOGLOBULIN A, SERUM 433 mg/dL (61-437); IMMUNOGLOBULIN G, SERUM 921 mg/dL (700-1600); IMMUNOGLOBULIN M, SERUM 17 mg/dL (20-172)
[2018-10-07] MEDS: LACTOBACILLUS RHAMNOSUS GG 1 EACH CAP.SPRINK PO SCH ×2 (08:33→16:18)
[2018-10-07] MEDS: FAMOTIDINE/PF INJ 20 MG/2 ML VIAL IV SCH ×2 (08:33→21:30)
[2018-10-07] MEDS: CARVEDILOL 3.125 MG TABLET PO SCH ×2 (08:33→21:30)
--- NOTE | 2018-10-07 10:45 | NUR ---
RN NOTES DR YUNG AT THE BEDSIDE SEEING THE PT AND NOTIFED REGARDING CHADD STATUS .
--- NOTE | 2018-10-07 11:00 | NUR ---
RN NOTES REPORT GIVEN TO ARAM RN , PT TRANSFERRED TO ROOM 111-1 VIA ACLS PROTOCOL PER MD ORDER CHADD STATUS WITH ALL THE BELONGINGS .
--- NOTE | 2018-10-07 11:00 | NUR ---
RN NOTES RECEIVED PATIENT FROM RIKI GRAVES. ALERT AND ORIENTED X4, ABLE TO TRACK, ABLE TO COMMUNICATE, BREATHING EVEN AND UNLABORED, ON NASAL CANNULA WITH O2 AT 3LPM, SATING AT 100%, TOE PADS AND FINGER PADS GANGRENOUS, IV LINE ON THE MARCELO: MIDLINE; IN PLACE AND INTACT. PATENT ON FLUSHING- SALINE LOCK. ELEVATED. SAFETY MEASURES PLACED IN. WILL CONTINUE TO MONITOR PATIENT.
[2018-10-07 11:13] LABS: *SPE A/G RATIO 0.6 (0.7-1.7); *SPE ALBUMIN 1.8 g/dL (2.9-4.4); *SPE ALPHA-1-GLOBULIN 0.4 g/dL (0.0-0.4); *SPE ALPHA-2-GLOBULIN 0.8 g/dL (0.4-1.0); *SPE GLOBULIN, TOTAL 3.1 g/dL (2.2-3.9); *SPE M-SPIKE Not Observed g/dL (Not Observed); *SPEGAMMA GLOBULIN 0.9 g/dL (0.4-1.8)
--- NOTE | 2018-10-07 11:15 | NUR ---
RN NOTES DR ARCE AT BEDSIDE. UPDATED MD ON CURRENT STATUS. NO NEW ORDER AT THIS TIME.
[2018-10-07] MEDS ORDERED: KEY,NONCONTROL,TO KEEP IN PYXI 1 EA MC ONE (11:49)
--- NOTE | 2018-10-07 14:30 | NUR ---
RN NOTES RECEIVED PT ON BED , LETHARGIC , WAKES UP TO VERBAL STIMULI, O2 SAT 100, CONTINUE TO MONITOR .
--- NOTE | 2018-10-07 14:30 | NUR ---
RN NOTES ENDORSED PATIENT TO RIKI GRAVES FOR CONTINUITY OF CARE. NO ACUTE CHANGES SINCE TRANSFER. ALL NURSING NEEDS ATTENDED AND MET. SAFETY MEASURES I PLACE AT ALL TIMES
[2018-10-07] MEDS: CEFTRIAXONE 1 G in IV D5W 50 ML IV SCH (16:19)
--- NOTE | 2018-10-07 17:40 | NUR ---
RN NOTES CALLED PT BROTHER 3 TIMES AND LEFT TWO PHONE MESSAGES FOR PT'S BROTHER , IVETTE BELTRAN, REGARDING HD CATH INSERTION CONSENT, NO RETURN CALL YET . DR. LOVE AND DR DELGADO NOTIFED . CONTINUE TO MONITOR .
--- NOTE | 2018-10-07 18:31 | NUR ---
RN NOTES PT IS STILL LETHARGIC , FOLLOWS SIMPLE COMMAND, DR HUNTER AT THE BEDSIDE, NO RETURN CALL FROM PT 'S BROTHER REGARDING THE CONSENT. WILL ENDOSE TO PATIENT SUPPORT PARTNER NURSE FOR CONTINUITY OF CARE .
--- NOTE | 2018-10-07 20:00 | NUR ---
CHADD RN NOTES RECEIVED PTS AWAKE ALERT AND RESPONSIVE , NO SOB NO DISTRESS NOTED AFIB ON THE MONITOR , ALL DUE MEDS GIVEN ORDERED , ALL NEEDS ATTENDED TOO , CALL LIGHT WITHIN REACH V/S STABLE AFEBRILE ON O2 AT 3LITERS VIA NC SATING 100 % PTS ON NPO STATUS ,PTS FOR HD ACCESS INSERTION , LEFT MESSAGE WITH THE BROTHER FOR THE CONSENT .KEPT PTS CLEAN DRY AND COMFORTABLE ,WILL CONTINUE TO MONITOR PTS.
[2018-10-08] VITALS (7 sets, daily range): BP systolic 107–155; BP diastolic 71–93
--- NOTE | 2018-10-08 07:01 | NUR ---
CHADD RN NOTES PTS IN BED AWAKE AND RESPONSIVE , REMAINS NPO STATUS ,V/S STABLE AFEBRILE , SPOKE TO PTS BROTHER CONSENTED FOR HD CATH INSERTION.WILL ENDRSE TO RN DAY SHIFT FOR CONTINUITY OF CARE
[2018-10-08 07:24] LABS: BASOPHILS % (AUTO) 0.2 % (0.0-2.0); EOSINOPHILS % (AUTO) 0.2 % (0.0-6.0); HEMATOCRIT 33 % (39-51); HEMOGLOBIN 10.5 g/dL (13.5-17.5); LYMPHOCYTES # (AUTO) 1.6 /CMM (0.8-4.8); LYMPHOCYTES % (AUTO) 9.2 % (20.0-44.0); MEAN CORPUSCULAR HGB CONC 32 g/dl (31.0-36.0); MEAN CORPUSCULAR VOLUME 84 fL (80-96); MONOCYTES % (AUTO) 5.5 % (2.0-12.0); NEUTROPHILS # (AUTO) 14.9 /CMM (1.8-8.9); NEUTROPHILS % (AUTO) 84.9 % (43.0-81.0); PLATELET COUNT (AUTO) 60 /CMM (150-450); WHITE BLOOD COUNT (AUTO) 17.6 K/uL (4.3-11.0)
[2018-10-08 07:50] LABS: CALCIUM, SERUM 8.1 mg/dL (8.5-10.1); MAGNESIUM 3.2 mg/dL (1.8-2.4)
--- NOTE | 2018-10-08 07:50 | NUR ---
RN CHADD OPENING NOTES RECEIVED PATIENT AWAKE IN BED. A/O X0 OBTUNDED. ON 3 LTS NASAL CANNULA NO SIGNS OR SYMPTOMS OF RESPIRATORY DISTRESS OR ACUTE PAIN. AFIB ON THE MONITOR 110. FINGERS AND FEET CYANOTIC. NPO AT THIS TIME ERNESTO PICC LINE IN PLACE. TELEPHONE CONSENT FROM BROTHER FOR NEW HD CATH PLACEMENT MD WILL BE KATE. SAFETY AND ASPIRATION PRECAUTIONS IN PLACE BED IN LOW POSITION CALL LIGHT WITHIN REACH. WILL CONT TO MONITOR
[2018-10-08 07:54] LABS: CREATININE 9.5 mg/dL (0.6-1.3); POTASSIUM 6.8 mmol/L (3.5-5.1)
[2018-10-08 07:56] LABS: PHOSPHORUS 13.3 mg/dL (2.5-4.9)
--- NOTE | 2018-10-08 07:59 | NUR ---
CRITICAL LAB POTASSIUM 6.8 AND PHOSPHORUS 13.3 WILL FOLLOW PROTOCOL
[2018-10-08 08:03] LABS: BAND % (MANUAL) 2 % (0.0-5.0); EOSINOPHILS % (MANUAL) 1 % (0-4); LYMPHOCYTES % (MANUAL) 3 % (16-48); MONOCYTES % (MANUAL) 3 % (0-11.0); NEUTROPHILS % (MANUAL) 91 (42-76)
[2018-10-08 08:19] LABS: PLATELET COUNT (AUTO) 60 /CMM (150-450)
[2018-10-08 08:35] LABS: D-DIMER > 35.20 mg/L(FEU (0.17-0.50)
[2018-10-08] MEDS: CARVEDILOL 3.125 MG TABLET PO SCH ×2 (08:50→21:46)
[2018-10-08] MEDS: LACTOBACILLUS RHAMNOSUS GG 1 EACH CAP.SPRINK PO SCH ×2 (08:51→17:00)
[2018-10-08] MEDS: FAMOTIDINE/PF INJ 20 MG/2 ML VIAL IV SCH ×2 (08:56→21:45)
--- NOTE | 2018-10-08 09:56 | NUR ---
SUPERVISOR UNLOADING NOTES MESSAGE LEFT WITH CLAUDE IN REGARDS TO LAB VALUES WILL F/U
--- NOTE | 2018-10-08 10:49 | NUR ---
LEARNING AND DEVELOPMENT INTERN MED SPOKE WITH DR WHITE IN REGARDS TO HD PLACEMENT. MD WILL CONTACT DR LOVE
[2018-10-08] MEDS: SEVELAMER CARBONATE 0.8 GM POWD.PACK GT SCH ×2 (13:00→18:00)
[2018-10-08] MEDS ORDERED: SODIUM POLYSTYRENE SULFONATE 15 G/60 ML BOTTLE RC ONE (13:00)
--- NOTE | 2018-10-08 18:00 | NUR ---
MOBILE SALES EXPERT NOTE KAYAXELATE AT 1300 WAS HELD DUE TO HD CATH PLACEMENT AND DIALYSIS RIGHT AFTER. ENDORSED TO NOC SHIFT
[2018-10-08] MEDS: CEFTRIAXONE 1 G in IV D5W 50 ML IV SCH (18:17)
--- NOTE | 2018-10-08 19:12 | NUR ---
RN CLOSING NOTE PATIENT IN BED. A/O X0 OBTUNDED WITH EYES OPEN. ON 3 LTS NASAL CANNULA NO SIGNS OR SYMPTOMS OF RESPIRATORY DISTRESS OR ACUTE PAIN. AFIB ON TELE MONITOR 100-110s. FINGERS AND FEET CYANOTIC. NPO AT THIS TIME ERNESTO PICC LINE IN PLACE. NEW HD CATH PLACED TODAY. DIALYSIS DONE WITH 3000 OUTPUT. SAFETY AND ASPIRATION PRECAUTIONS IN PLACE BED IN LOW POSITION CALL LIGHT WITHIN REACH. ENDORSED TO NOC SHIFT
--- NOTE | 2018-10-08 20:00 | NUR ---
telecommunications project manager notes received pts in bed with eyes open responsive to pain ,on afib at 106 on the monitor , no sob no distress noted pts sating 100% , all needs attended too call light within reach , due meds given as ordered , on via nj , abg done result relayed to mary with no new order .will continue to monitor pts.
[2018-10-09] VITALS: BP 152/82
--- NOTE | 2018-10-09 02:30 | NUR ---
Rn initial notes Received report from Lakshmi, pts in bed with eyes open responsive to pain ,on afib at 98 on the monitor , no sob no distress noted pts sating 100% , all needs attended too call light within reach , pt on 3 via mi , will continue to monitor pts.
--- NOTE | 2018-10-09 02:35 | NUR ---
POWER PLANT MANAGER NOTES PTS IN BED STABLE , CONTINUE ON ON 3 LITERS NC SATING 100 %.PTS TRANSFER CARE AND REPORT GIVEN TO WES FOR CONTINUITY OF CARE.
[2018-10-09 04:00] VITALS: BP 149/71
--- NOTE | 2018-10-09 06:17 | NUR ---
RN CLOSING NOTE PATIENT IN BED. A/O X0 OBTUNDED WITH EYES OPEN. ON 3 LTS NASAL CANNULA NO SIGNS OR SYMPTOMS OF RESPIRATORY DISTRESS OR ACUTE PAIN. AFIB ON TELE MONITOR 100-110s. FINGERS AND FEET CYANOTIC. NPO AT THIS TIME ERNESTO PICC LINE IN PLACE. SAFETY AND ASPIRATION PRECAUTIONS IN PLACE BED IN LOW AND LOCKED POSITION, CALL LIGHT WITHIN REACH. WILL ENDORSED TO AM SHIFT
[2018-10-09 07:11] LABS: BASOPHILS # (AUTO) 0.1 /CMM (0.0-0.2); BASOPHILS % (AUTO) 0.4 % (0.0-2.0); EOSINOPHILS % (AUTO) 0.2 % (0.0-6.0); HEMATOCRIT 32 % (39-51); HEMOGLOBIN 10.3 g/dL (13.5-17.5); LYMPHOCYTES # (AUTO) 1.5 /CMM (0.8-4.8); LYMPHOCYTES % (AUTO) 8.6 % (20.0-44.0); MEAN CORPUSCULAR HGB CONC 32 g/dl (31.0-36.0); MEAN CORPUSCULAR VOLUME 84 fL (80-96); MONOCYTES # (AUTO) 1.1 /CMM (0.1-1.30); MONOCYTES % (AUTO) 6.4 % (2.0-12.0); NEUTROPHILS % (AUTO) 84.4 % (43.0-81.0); PLATELET COUNT (AUTO) 95 /CMM (150-450); RED BLOOD CELL COUNT(AUTO) 3.84 MIL/uL (4.5-6.0); WHITE BLOOD COUNT (AUTO) 17.8 K/uL (4.3-11.0)
[2018-10-09 07:29] LABS: ABG BASE EXCESS -1.5 mmol/L; ABG OXYGEN SATURATION 97.9 % (92.0-98.5); ABG PH 7.511 (7.350-7.450); ABG PO2 116.8 mmHg (75.0-100.0); MetHb 0.4 % (0.0-1.5); O2Hb 96.5 % (94.0-97.0); SITE, ABG Right Radial
--- NOTE | 2018-10-09 07:30 | NUR ---
INITIAL: RECEIVED PATIENT AWAKE IN BED. A/O X0 OBTUNDED. ON 3 LITERS NASAL CANNULA NO SIGNS OR SYMPTOMS OF RESPIRATORY DISTRESS OR ACUTE PAIN. HX OF AFIB DOWN GRADED TO MED/SURG STATUS. FINGERS AND FEET CYANOTIC. NPO AT THIS TIME ERNESTO PICC LINE IN PLACE. STARTING HD. SAFETY AND ASPIRATION PRECAUTIONS IN PLACE BED IN LOW POSITION CALL LIGHT WITHIN REACH. WILL CONT TO MONITOR
[2018-10-09 08:00] VITALS: BP 147/84
[2018-10-09 08:02] LABS: CALCIUM, SERUM 7.8 mg/dL (8.5-10.1)
[2018-10-09 08:09] LABS: CREATININE 8.6 mg/dL (0.6-1.3); PHOSPHORUS 12.7 mg/dL (2.5-4.9); POTASSIUM 6.3 mmol/L (3.5-5.1)
[2018-10-09] MEDS: FAMOTIDINE/PF INJ 20 MG/2 ML VIAL IV SCH ×2 (08:22→20:33)
[2018-10-09] MEDS: SEVELAMER CARBONATE 0.8 GM POWD.PACK GT SCH ×3 (08:22→17:43)
[2018-10-09] MEDS: CARVEDILOL 3.125 MG TABLET PO SCH ×2 (08:23→20:34)
[2018-10-09] MEDS: LACTOBACILLUS RHAMNOSUS GG 1 EACH CAP.SPRINK PO SCH ×2 (08:23→16:24)
--- NOTE | 2018-10-09 09:54 | NUR ---
MD ARCE NOTIFIED OF ABNORMAL AM LABS RETURNED NOTIFICATION WILL NOTIFY RENAL
[2018-10-09 10:18] LABS: LYMPHOCYTES % (MANUAL) 13 % (16-48); MONOCYTES % (MANUAL) 2 % (0-11.0); NEUTROPHILS % (MANUAL) 85 (42-76)
[2018-10-09 12:00] VITALS: BP_SYST 125; BP_SYST 127; BP_DIAS 70; BP_DIAS 75
--- NOTE | 2018-10-09 13:03 | NUR ---
SPOKE WITH BROTHER IVETTE MAS CONTACT FOR CELL AND HOME TELEPHONE NUMBERS CELL: HOME:
[2018-10-09 16:00] VITALS: BP 126/74
[2018-10-09] MEDS: CEFTRIAXONE 1 G in IV D5W 50 ML IV SCH (16:24)
--- NOTE | 2018-10-09 18:07 | NUR ---
CLOSING PATIENT IN BED. A/O X1 OBTUNDED WITH EYES OPEN. PT RESPONDED WHEN ASKED IF HE ALRIGHT ON 3 LTS NASAL CANNULA NO SIGNS OR SYMPTOMS OF RESPIRATORY DISTRESS OR ACUTE PAIN. TRANSFERRED TO MED/SURG FINGERS AND FEET CYANOTIC. NPO AT THIS TIME ERNESTO PICC LINE IN PLACE. SAFETY AND ASPIRATION PRECAUTIONS IN PLACE BED IN LOW AND LOCKED POSITION, CALL LIGHT WITHIN REACH. WILL ENDORSED TO PM SHIFT
--- NOTE | 2018-10-09 19:20 | NUR ---
RN OPENING NOTES Received patient in bed, alert, oriented x 1. Patient able to answer by name and able to answer when asked if he is ok. Breathing even and unlabored. Not in any distress. On 3L O2 via NC saturating 96%. Cyanosis noted on feet and fingers. ERNESTO midline intact and patent. Safety measures in place; call del cid within reach. Bed in low, locked position. Patient stable as endorsed by the morning RN. Will continue to monitor accordingly
[2018-10-09 20:00] VITALS: BP 129/80
[2018-10-10] VITALS (20 sets, daily range): BP systolic 95–133; BP diastolic 32–88
--- NOTE | 2018-10-10 06:23 | NUR ---
RN CLOSING NOTES Patient in bed, alert, oriented x 1. Patient able to answer by name and able to answer when asked simple questions. Breathing even and unlabored. Not in any distress. On 3L O2 via NC saturating 96%. Cyanosis noted on feet and fingers. ERNESTO midline intact and patent. Kept clean and dry- changed diaper x1. All needs attended to. All due medications given as ordered. Safety measures in place; call del cid within reach. Bed in low, locked position. No acute changes overnight. Will endorse SARINA to morning RN.
[2018-10-10 07:38] LABS: BASOPHILS % (AUTO) 0.2 % (0.0-2.0); EOSINOPHILS % (AUTO) 0.3 % (0.0-6.0); HEMATOCRIT 31 % (39-51); HEMOGLOBIN 10.2 g/dL (13.5-17.5); LYMPHOCYTES # (AUTO) 1.1 /CMM (0.8-4.8); LYMPHOCYTES % (AUTO) 6.3 % (20.0-44.0); MEAN CORPUSCULAR HGB CONC 32 g/dl (31.0-36.0); MEAN CORPUSCULAR VOLUME 84 fL (80-96); MONOCYTES # (AUTO) 0.9 /CMM (0.1-1.30); MONOCYTES % (AUTO) 5.1 % (2.0-12.0); NEUTROPHILS # (AUTO) 14.8 /CMM (1.8-8.9); NEUTROPHILS % (AUTO) 88.1 % (43.0-81.0); PLATELET COUNT (AUTO) 105 /CMM (150-450); RED BLOOD CELL COUNT(AUTO) 3.74 MIL/uL (4.5-6.0); WHITE BLOOD COUNT (AUTO) 16.9 K/uL (4.3-11.0)
[2018-10-10 08:05] LABS: CALCIUM, SERUM 7.9 mg/dL (8.5-10.1); MAGNESIUM 3.1 mg/dL (1.8-2.4)
[2018-10-10] MEDS: LACTOBACILLUS RHAMNOSUS GG 1 EACH CAP.SPRINK PO SCH ×2 (08:26→17:00)
[2018-10-10] MEDS: CARVEDILOL 3.125 MG TABLET PO SCH ×2 (08:26→21:00)
[2018-10-10] MEDS: SEVELAMER CARBONATE 0.8 GM POWD.PACK GT SCH ×3 (08:26→18:00)
[2018-10-10] MEDS: FAMOTIDINE/PF INJ 20 MG/2 ML VIAL IV SCH ×2 (08:26→20:33)
[2018-10-10 08:29] LABS: CREATININE 9.4 mg/dL (0.6-1.3)
[2018-10-10 08:32] LABS: POTASSIUM 6.4 mmol/L (3.5-5.1)
--- NOTE | 2018-10-10 08:55 | NUR ---
MS nurse left message to was notified re; k 6.4 phos 1d4 creatine 9.4 amd nim 155 at this time
[2018-10-10] MEDS ORDERED: SODIUM POLYSTYRENE SULFONATE 15 G/60 ML BOTTLE RC ONE (10:30)
[2018-10-10 14:23] LABS: ABG BASE EXCESS -5.6 mmol/L; ABG OXYGEN SATURATION 99.2 % (92.0-98.5); ABG PCO2 21.7 mmHg (35.0-45.0); ABG PH 7.486 (7.350-7.450); ABG PO2 329.8 mmHg (75.0-100.0); AaDO2 361.5 mmHg; COHb 0.4 % (0.5-1.5); MetHb 0.6 % (0.0-1.5); O2Hb 98.2 % (94.0-97.0); SITE, ABG Right Radial; VENT MODE, BG NON REBREATHER
[2018-10-10 16:41] LABS: CALCIUM, SERUM 7.8 mg/dL (8.5-10.1)
[2018-10-10 16:55] LABS: POTASSIUM 6.6 mmol/L (3.5-5.1)
[2018-10-10 16:56] LABS: CREATININE 9.4 mg/dL (0.6-1.3)
[2018-10-10] MEDS: CEFTRIAXONE 1 G in IV D5W 50 ML IV SCH (17:57)
--- NOTE | 2018-10-10 18:00 | NUR ---
at 1800, Shabbir and updated re: the patient. Patient noted with shallow fast breathing, rate 40's 100% O2 sat on 3LPM of O2 via NC. With fingers and feet cyanosis/discoloration. was notified re; unable to give KAYEXELATE yet due to patient's condition and notified ABG results and orders obtained to transfer to ICU
--- NOTE | 2018-10-10 18:15 | NUR ---
EXHAUST EQUIPMENT OPERATOR NOTES PATIENT RECEIVED FROM RM 111-1 FOR WORSENING RESPIRATORY STATUS, NOTED PT WITH HYPERVENTILATION. PT ABLE TO RESPOND TO SIMPLE QUESTIONS WITH USE OF GESTURES. IN NO APPARENT PAIN AT THIS TIME. IV ACCESS TO RIGHT UPPER ARM PATENT AND INTACT NO REDNESS OR INFILTRATION NOTED. RECTAL FLEXI SEAL PLACED ORDERED TO ADMINISTER KAYAXELATE. PER MD PT TO HAVE BMP AND ABG REDRAWN AT MIDNIGHT AND CONTINUE TO MONITOR. WILL ENDORSE TO ONCOMING SHIFT FOR CONTINUITY OF CARE
--- NOTE | 2018-10-10 19:10 | NUR ---
RN NOTE 7060: Spoke with Dr. Shea and updated re: the patient. Patient noted with shallow fast breathing, rate 40's 100% O2 sat on 3LPM of O2 via NC. With fingers and feet cyanosis/discoloration. MD made aware patient has not received the Kayexelate yet per previous RN. Obtained order to place rectal tube and administer Kayexelate and repeat BMP and ABG 12midnight. Administered RC and clamped, will endorse [facility]. 0910: Patient breathing 30-32. 100% on 2 LPM. Endorsed to next shift.
--- NOTE | 2018-10-10 19:10 | NUR ---
1910: Patient breathing 30-32. 100% on 2 LPM. Endorsed to next shift.
--- NOTE | 2018-10-10 20:58 | NUR ---
PT IS UNABLE TO SWALLOW, HE CANNOT EAT APPLESAUCE, CANNOT DRINK WATER FROM STRAW, CANNOT EAT ICE CHIPS, WILL HOLD CARVEDILOL
[2018-10-11] VITALS (75 sets, daily range): BP systolic 79–157; BP diastolic 48–98
[2018-10-11 00:35] LABS: CALCIUM, SERUM 7.5 mg/dL (8.5-10.1)
[2018-10-11 00:44] LABS: CREATININE 10.2 mg/dL (0.6-1.3); POTASSIUM 6.9 mmol/L (3.5-5.1)
[2018-10-11] MEDS ORDERED: INSULIN REGULAR, HUMAN 100 UNIT/ML 3 ML VIAL IV ONE (01:00)
[2018-10-11] MEDS ORDERED: Calcium Gluconate 1GM/10ML 4.65 MEQ in IV NS 0.9% 50 ML IV ONE (01:00)
[2018-10-11] MEDS ORDERED: DEXTROSE 50%-WATER 50 ML DISP.SYRIN IVP ONE (01:00)
[2018-10-11] MEDS ORDERED: Calcium Gluconate 0.465 MEQ/ML VIAL IV ONE (01:08)
--- NOTE | 2018-10-11 01:28 | NUR ---
CRITICAL LAB VALUES, POTASSIUM 6.9, BUN 160, CR 10.2, FUNDS TRANSFER CLERK SONYA HEIN NOTIFIED, NEW ORDERS RECEIVED, PT GIVEN 1 AMP CALCIUM GLUCONATE, 10 UNITS INSULIN, 1 AMP D50. WILL CONTINUE TO MONITOR
[2018-10-11 04:59] LABS: BASOPHILS # (AUTO) 0.1 /CMM (0.0-0.2); BASOPHILS % (AUTO) 0.3 % (0.0-2.0); EOSINOPHILS % (AUTO) 0.3 % (0.0-6.0); HEMATOCRIT 33 % (39-51); HEMOGLOBIN 10.2 g/dL (13.5-17.5); LYMPHOCYTES # (AUTO) 1.4 /CMM (0.8-4.8); LYMPHOCYTES % (AUTO) 7.9 % (20.0-44.0); MEAN CORPUSCULAR HGB CONC 31 g/dl (31.0-36.0); MEAN CORPUSCULAR VOLUME 85 fL (80-96); MONOCYTES % (AUTO) 5.7 % (2.0-12.0); NEUTROPHILS # (AUTO) 15.1 /CMM (1.8-8.9); NEUTROPHILS % (AUTO) 85.8 % (43.0-81.0); PLATELET COUNT (AUTO) 131 /CMM (150-450); RED BLOOD CELL COUNT(AUTO) 3.82 MIL/uL (4.5-6.0); WHITE BLOOD COUNT (AUTO) 17.6 K/uL (4.3-11.0)
[2018-10-11 05:21] LABS: CALCIUM, SERUM 8.2 mg/dL (8.5-10.1); MAGNESIUM 3.3 mg/dL (1.8-2.4)
[2018-10-11 05:41] LABS: CREATININE 10.4 mg/dL (0.6-1.3); POTASSIUM 6.3 mmol/L (3.5-5.1)
--- NOTE | 2018-10-11 06:30 | NUR ---
hd started, will continue to monitor
--- NOTE | 2018-10-11 07:00 | NUR ---
RN NOTES RECEIVED PT ON BED, ALERT, FOLLOWS COMMAND, ON 2L O2 N/C , O2 SAT 100%, RECEIVING HD AT THIS TIME, ON TELE SR HR IN 80'S , NPO , UNABLE TO SWALLOW , R UPPER ARM PICC LINE AND R EJ IV SITE G 20 CLEAN, DRY AND INTACT, SR UPx3, CALL LIGHT WITHIN EASY REACH, BED LOCKED AND IN LOWEST POSITION , CONTINUE TO MONITOR . Addendum: 10/11/18 at 0747 by DEBBIE AYALA RN CORRECTION; PT DOESN'T HAVE PICC LINE NOR EJ LINE . R UPPER ARM MIDLINE AND R FEMORAL HD CATH SITE CLEAN, DRY AND INTACT.
[2018-10-11] MEDS: SEVELAMER CARBONATE 0.8 GM POWD.PACK GT SCH ×3 (08:00→17:36)
[2018-10-11] MEDS: LACTOBACILLUS RHAMNOSUS GG 1 EACH CAP.SPRINK PO SCH ×3 (08:36→17:51)
[2018-10-11] MEDS: FAMOTIDINE/PF INJ 20 MG/2 ML VIAL IV SCH ×2 (08:38→22:33)
[2018-10-11] MEDS: CARVEDILOL 3.125 MG TABLET PO SCH ×2 (09:23→22:32)
[2018-10-11 10:28] LABS: CALCIUM, SERUM 7.6 mg/dL (8.5-10.1); CREATININE 7.2 mg/dL (0.6-1.3); POTASSIUM 4.5 mmol/L (3.5-5.1)
--- NOTE | 2018-10-11 10:36 | NUR ---
RN NOTES DR MENDOZA NOTIFED REGARDING 09:30 BMP RESULTS , CONTINUE TO MONITOR .
--- NOTE | 2018-10-11 11:57 | NUR ---
RN NOTES NGT INSERTED PER MD ORDER AND PLACEMENT VERIFIED BY TWO RN'S. CONTINUE TO MONITOR .
--- NOTE | 2018-10-11 13:52 | NUR ---
RN NOTES LAB NOTIFED REGARDING BLOOD CULTURE THAT HAS NOT RESULTED YET THAT WAS DRAWN ON 10/06. RESULTS IS NOT READY PER PAULINE MEDICAID SPECIALIST.
--- NOTE | 2018-10-11 14:00 | NUR ---
RN NOTES NO LOOSE STOOL NOTED, RECTAL TUBE D/MINOO PER MD ORDER .
--- NOTE | 2018-10-11 15:00 | NUR ---
RN NOTES LEFT A MESSAGE FOR DIETITIAN REGARDING TF CONSULT.
[2018-10-11] MEDS: CEFTRIAXONE 1 G in IV D5W 50 ML IV SCH (17:36)
--- NOTE | 2018-10-11 18:00 | NUR ---
RN NOTES NGT IN PLACE, NO SIGNIFICANT CHANGES NOTED ON THIS SHIFT, R UPPER ARM MIDLINE SITE CLEAN, DRY AND INTACT, SR UP x3, CALL LIGHT WITHIN EASY REACH, BED LOCKED AND IN LOWEST POSITION, WILL ENDOSE TO PETROL TANKER DRIVER NURSE FOR CONTINUITY OF CARE
--- NOTE | 2018-10-11 19:15 | NUR ---
ICU/RN DR. LOVE AT BEDSIDE TO INSERT HD CATH.INSERTED ASEPTICALLY VIA RT. FEMORAL W/ PIGTAIL.
--- NOTE | 2018-10-11 20:00 | NUR ---
ICU/RN RECEIVED PT AWAKE,ALERT,OX2,FOLLOWS COMMANDS.DENIES PAIN OR DISCOMFORT.ON 2LN/C W/ SAT.OF 97-98%.MONITOR SHOWS T-YAA-D-FLUTTER W/ CONTROLLED VENTRICULAR RESPONSE.
[2018-10-12] VITALS (32 sets, daily range): BP systolic 95–149; BP diastolic 48–87
--- NOTE | 2018-10-12 08:00 | NUR ---
RN INITIAL NOTES: Rec'd pt on bed, awake but lethargic, A/O x 1, answers simple questions. On NC at 2lpm, sating at 98%. On telemonitor, SR. Has NGT on R nare, patent & intact, noted gurgling sound upon auscultation, clamped at this time. Has ERNESTO midline, SL, patent & intact w/ no s/sx of infection/infiltration noted. Has R femoral HD cath intact. Safety precaution in place. Bed in lowest & locked pos. Call light placed w/in reach. Will cont to monitor & attend pt needs.
[2018-10-12] MEDS: CARVEDILOL 3.125 MG TABLET PO SCH ×2 (08:50→20:02)
[2018-10-12] MEDS: FAMOTIDINE/PF INJ 20 MG/2 ML VIAL IV SCH ×2 (08:50→20:02)
[2018-10-12] MEDS: LACTOBACILLUS RHAMNOSUS GG 1 EACH CAP.SPRINK PO SCH ×2 (08:50→17:48)
[2018-10-12] MEDS: SEVELAMER CARBONATE 0.8 GM POWD.PACK GT SCH ×3 (08:50→17:48)
--- NOTE | 2018-10-12 09:00 | NUR ---
Pt seen & examined by Dr. Pond w/ orders made & carried out.
[2018-10-12 10:18] LABS: BASOPHILS % (AUTO) 0.2 % (0.0-2.0); EOSINOPHILS % (AUTO) 0.3 % (0.0-6.0); HEMATOCRIT 32 % (39-51); HEMOGLOBIN 9.9 g/dL (13.5-17.5); LYMPHOCYTES # (AUTO) 0.9 /CMM (0.8-4.8); LYMPHOCYTES % (AUTO) 4.5 % (20.0-44.0); MEAN CORPUSCULAR HGB CONC 31 g/dl (31.0-36.0); MEAN CORPUSCULAR VOLUME 86 fL (80-96); MONOCYTES # (AUTO) 0.9 /CMM (0.1-1.30); MONOCYTES % (AUTO) 4.5 % (2.0-12.0); NEUTROPHILS # (AUTO) 18.7 /CMM (1.8-8.9); NEUTROPHILS % (AUTO) 90.5 % (43.0-81.0); PLATELET COUNT (AUTO) 128 /CMM (150-450); WHITE BLOOD COUNT (AUTO) 20.6 K/uL (4.3-11.0)
--- NOTE | 2018-10-12 10:30 | NUR ---
Pt seen & examined by SABAS Cason.
--- NOTE | 2018-10-12 11:20 | NUR ---
Dr. Pond made aware re: latest H/H, PT/INR & PTT. Per still to inform jade & neuro re: initiating anticoagulant. 1125H SABAS Cason made aware re: starting anticoagulant. Per COMPUTER TYPESETTER, will do MRI of the brain w/o contrast first & depending on the result will decide when to start the anticoagulant. 1125H Dr. Jade informed about this, awaiting response.
[2018-10-12 11:33] LABS: CALCIUM, SERUM 7.5 mg/dL (8.5-10.1); POTASSIUM 5.9 mmol/L (3.5-5.1)
[2018-10-12 11:34] LABS: CREATININE 9.5 mg/dL (0.6-1.3)
--- NOTE | 2018-10-12 12:00 | NUR ---
Pt seen & examined by SABAS Maier. Per LIBRARY CLERICAL ASSISTANT okay to start TF via NGT & recommendations of HUSSAIN.
[2018-10-12] MEDS: ASPIRIN 81 MG TAB.CHEW PO SCH (13:04)
--- NOTE | 2018-10-12 14:00 | NUR ---
Pt accompanied to MRI of the brain via ACLS protocol. 1425H Pt tolerated well the procedure.
--- NOTE | 2018-10-12 15:56 | NUR ---
MRI of the brain results relayed to SABAS Cason. Per ADHESIVE SPRAYER, to start IV heparin tomorrow.
--- NOTE | 2018-10-12 16:50 | NUR ---
Called Dr. Jade regarding plan to start full dose of IV heparin. Informed MD latest H/H, platelet, PT/INR & PTT. Per , okay to start IV heparin drip but no bolus & need to check pt's PT/PTT. 1700H Dr. Pond made aware that per SABAS Cason okay to start IV heparin tomorrow based on pt's MRI brain result. also made aware that Dr. Jade agreed but no bolus. Per Dr. Pond, dosing to start at 750 units/hr. Addendum: 10/12/18 at 1828 by RO STAPLETON RN Addendum: Follow up made w/ Dr. Jade re: frequency of PT/INR PTT checking. Per , order dose per heparin protocol by pharmacy dosing. Dr. Pond made aware & replied okay.
[2018-10-12] MEDS: CEFTRIAXONE 1 G in IV D5W 50 ML IV SCH (17:48)
[2018-10-12] MEDS: PROSOURCE / PROSTAT (PYXIS) 30 ML UDC GT SCH (17:48)
[2018-10-12] MEDS: NEPRO 1,000 ML BOTTLE GT PRN (17:51)
--- NOTE | 2018-10-12 18:32 | NUR ---
RN CLOSING NOTES: No significant changes noted w/in shift. Pt tolerated NC at 2lpm, no SOB. On telemonitor, still SR. NGT on R nare, kept patent & intact, still w/ gurgling sound upon auscultation, started on GTF as ordered. ERNESTO midline, kept patent & intact w/ no s/sx of infection/infiltration noted. R femoral HD cath intact w/ C/D/I dressing. Safety precaution kept in place at all times. Bed in lowest & locked pos. Call light placed w/in reach. Will endorse to PM RN for SARINA.
--- NOTE | 2018-10-12 20:00 | NUR ---
DEBURRER - NOTES - Received pt in bed, awake but lethargic, A/O x 1, answers simple questions. On NC at 2lpm, sating at 100%. On telemonitor, AFIB/AFLUTTER. Has NGT on R nare, patent & intact, with nepro @ 45 ml/hr. Has ERNESTO midline, SL, patent & intact w/ no s/sx of infection/infiltration noted. Has R femoral HD cath intact. Safety precaution in place. Bed in lowest & locked pos. Call light placed w/in reach. Will cont to monitor & attend pt needs.
[2018-10-13] VITALS (35 sets, daily range): BP systolic 83–136; BP diastolic 42–76
[2018-10-13 04:33] LABS: BASOPHILS % (AUTO) 0.1 % (0.0-2.0); EOSINOPHILS % (AUTO) 0.5 % (0.0-6.0); HEMATOCRIT 29 % (39-51); HEMOGLOBIN 9.2 g/dL (13.5-17.5); LYMPHOCYTES % (AUTO) 5.6 % (20.0-44.0); MEAN CORPUSCULAR HGB CONC 32 g/dl (31.0-36.0); MEAN CORPUSCULAR VOLUME 86 fL (80-96); MONOCYTES # (AUTO) 0.9 /CMM (0.1-1.30); MONOCYTES % (AUTO) 5.3 % (2.0-12.0); NEUTROPHILS # (AUTO) 15.9 /CMM (1.8-8.9); NEUTROPHILS % (AUTO) 88.5 % (43.0-81.0); PLATELET COUNT (AUTO) 105 /CMM (150-450); RED BLOOD CELL COUNT(AUTO) 3.35 MIL/uL (4.5-6.0)
[2018-10-13 04:40] LABS: CALCIUM, SERUM 7.4 mg/dL (8.5-10.1); MAGNESIUM 2.7 mg/dL (1.8-2.4); POTASSIUM 5.1 mmol/L (3.5-5.1)
[2018-10-13 04:42] LABS: CREATININE 7.8 mg/dL (0.6-1.3)
[2018-10-13 04:44] LABS: PHOSPHORUS 12.9 mg/dL (2.5-4.9)
--- NOTE | 2018-10-13 07:52 | NUR ---
rn initial notes received pt awake in bed with NAD, pt is responsive. remains on o2 inh with NGT to rt nare with on going TF tolerated well. noted with blackish finger tips and gangrene on ble. afib on the monitor. no indication of any pain noted; call light wihtin reach. safety ensured. will monitor
[2018-10-13] MEDS: SEVELAMER CARBONATE 0.8 GM POWD.PACK GT SCH ×3 (08:59→17:42)
[2018-10-13] MEDS: PANTOPRAZOLE 40 MG/PACK PACK NG SCH (09:00)
[2018-10-13] MEDS: ASPIRIN 81 MG TAB.CHEW PO SCH (09:00)
[2018-10-13] MEDS: LACTOBACILLUS RHAMNOSUS GG 1 EACH CAP.SPRINK PO SCH ×2 (09:01→17:42)
[2018-10-13] MEDS: CARVEDILOL 3.125 MG TABLET PO SCH ×2 (09:01→21:38)
[2018-10-13] MEDS: PROSOURCE / PROSTAT (PYXIS) 30 ML UDC GT SCH ×2 (09:08→17:43)
--- NOTE | 2018-10-13 10:11 | NUR ---
RN NOTES PT AWAKE IN BED; NAD. GT IN PLACE, ON GOING FEEDING , HOB KEPT ELEVATED. AFIB ON THE MONITOR, POSITIONED FOR COMOFRT. ENDORSED TO RIKI LAGOS FOR CONTINUITY OF CARE IN STABLE CONDITION
[2018-10-13] MEDS: HEPARIN INFUSION/D5W 500 ML IV PRN ×2 (10:12→17:40)
--- NOTE | 2018-10-13 10:15 | NUR ---
Per report from RIKI Amaro heparin drip order placed by RIKI Garcia. Prem endorsed that initiation of the heparin was cleared by Abdulkadir Fields NP via text on 10/12 to start anticoagulation tomorrow and Dr Jade, who specified no bolus to be given. Dr. Pond verified that he wants Heparin gtt initiated. Heparin gtt initiated at 1013 at the rate of 1450 will obtain ptt at 1600 .
--- NOTE | 2018-10-13 16:16 | NUR ---
Nidhi Fields notified that heparin gtt was started this am. [facility] [place] oplaced in [facility] "OK to continue Heparin gtt per Dr. Pond's orders. lab called the 2nd time for PTT draw that was due at 1600.
--- NOTE | 2018-10-13 16:35 | NUR ---
New Full code status at 14:[address] Pond in error. New DNR/DNI order placed by Ailin Almaguer RN cosigned by RIKI Shook per conversation with Dr. Pond.
[2018-10-13] MEDS: CEFTRIAXONE 1 G in IV D5W 50 ML IV SCH (17:42)
--- NOTE | 2018-10-13 19:00 | NUR ---
VARITYPIST: RECEIVED PT LETHARGIC, A/O X 2 WT GARBLED SPEECH. ON 2L 02 VIA NC WT NO ACUTE DISTRESS, NO C/O PAIN OR EVIDENCE OF DISCOMFORT. A. FIB CONTROLLED, A. FLUTTER ON GARMENT STEAMER. AFEBRILE. RT. NGT IN PLACE RUNNING NEPRO 1.2 AT 45ML/HR AND TOLERATING WELL. ERNESTO MID LINE INFUSING HEPARIN DRIP AT 1600U/HR WT NO ACTIVE BLEEDING AT THIS TIME. NO S/S OF IV INFILTRATION. HOB AT 45 DEGREES. SAFETY AND ASPIRATION PRECAUTION NOTED. WILL CONTINUE TO MONITOR.
[2018-10-13] MEDS: NEPRO 1,000 ML BOTTLE GT PRN (21:38)
--- NOTE | 2018-10-13 22:00 | NUR ---
AUTO BODY WORKER: PTT DRAWN AND 2200. AWAITING RESULTS.
--- NOTE | 2018-10-13 23:30 | NUR ---
SPEEDER OPERATOR: RECEIVED PTT RESULT OF 44.8. ADJUSTED DOSE RATE TO 1750U/HR PER PROTOCOL AND WILL RECHECK PTT AFTER 6 HRS.
[2018-10-14] VITALS (32 sets, daily range): BP systolic 91–158; BP diastolic 43–121
[2018-10-14] MEDS ORDERED: HEPARIN INFUSION/D5W 500 ML IV ONE (01:07)
[2018-10-14] MEDS: HEPARIN INFUSION/D5W 500 ML IV PRN ×2 (02:15→17:18)
[2018-10-14 04:52] LABS: BASOPHILS # (AUTO) 0.1 /CMM (0.0-0.2); BASOPHILS % (AUTO) 0.3 % (0.0-2.0); EOSINOPHILS % (AUTO) 0.6 % (0.0-6.0); HEMATOCRIT 26 % (39-51); HEMOGLOBIN 8.4 g/dL (13.5-17.5); LYMPHOCYTES # (AUTO) 0.9 /CMM (0.8-4.8); LYMPHOCYTES % (AUTO) 4.4 % (20.0-44.0); MEAN CORPUSCULAR HGB CONC 32 g/dl (31.0-36.0); MEAN CORPUSCULAR VOLUME 87 fL (80-96); MONOCYTES # (AUTO) 1.3 /CMM (0.1-1.30); MONOCYTES % (AUTO) 6.1 % (2.0-12.0); NEUTROPHILS # (AUTO) 18.9 /CMM (1.8-8.9); NEUTROPHILS % (AUTO) 88.6 % (43.0-81.0); PLATELET COUNT (AUTO) 79 /CMM (150-450); RED BLOOD CELL COUNT(AUTO) 3.03 MIL/uL (4.5-6.0); WHITE BLOOD COUNT (AUTO) 21.3 K/uL (4.3-11.0)
[2018-10-14 05:10] LABS: CALCIUM, SERUM 6.7 mg/dL (8.5-10.1); MAGNESIUM 2.6 mg/dL (1.8-2.4); POTASSIUM 4.9 mmol/L (3.5-5.1)
[2018-10-14 05:29] LABS: LYMPHOCYTES % (MANUAL) 3 % (16-48); MONOCYTES % (MANUAL) 7 % (0-11.0); NEUTROPHILS % (MANUAL) 90 (42-76)
[2018-10-14 05:31] LABS: CREATININE 7.6 mg/dL (0.6-1.3); PHOSPHORUS 9.9 mg/dL (2.5-4.9)
--- NOTE | 2018-10-14 06:30 | NUR ---
PATENT CHEMIST: PTT DRAWN AT 0530. STILL AWAITING FOR RESULTS.
--- NOTE | 2018-10-14 06:45 | NUR ---
ROVING DEPARTMENT SUPERVISOR: STILL ON HEPARIN DRIP AT 1750U/HR. STILL PENDING PTT RESULTS AND MADE FF-UP WT ADIN FROM LAB AND SAID IT'S NOT OUT YET. NO ACTIVE BLEEDING. PT REMAINS LETHARGIC, ABLE TO ANSWER QUESTIONS WT GARBLED SPEECH AND FOLLOW COMMANDS. ALL NEEDS MET. WILL ENDORSE TO DAY SHIFT FOR CONTINUITY OF CARE.
[2018-10-14] MEDS: SEVELAMER CARBONATE 0.8 GM POWD.PACK GT SCH ×3 (08:17→17:29)
[2018-10-14] MEDS: LACTOBACILLUS RHAMNOSUS GG 1 EACH CAP.SPRINK PO SCH ×2 (08:20→17:29)
[2018-10-14] MEDS: PANTOPRAZOLE 40 MG/PACK PACK NG SCH (08:20)
[2018-10-14] MEDS: ASPIRIN 81 MG TAB.CHEW PO SCH (08:20)
[2018-10-14] MEDS: CARVEDILOL 3.125 MG TABLET PO SCH ×2 (08:21→20:43)
--- NOTE | 2018-10-14 09:00 | NUR ---
no change in pt condition assisted with hygiene, skin care and am meds.
[2018-10-14] MEDS: PROSOURCE / PROSTAT (PYXIS) 30 ML UDC GT SCH ×2 (09:39→17:30)
[2018-10-14] MEDS: ACETYLCYSTEINE 10% SOLN 400 MG/4 ML VIAL NEB SCH ×2 (11:00→15:47)
--- NOTE | 2018-10-14 16:00 | NUR ---
hd completed, vss.
[2018-10-14] MEDS: CEFTRIAXONE 1 G in IV D5W 50 ML IV SCH (17:28)
--- NOTE | 2018-10-14 18:45 | NUR ---
pt transferred to tele room 325. pt had no belonging in icu room 254. rosalie contacted to locate his belonging.
--- NOTE | 2018-10-14 18:50 | NUR ---
MECHANICAL DETAILER RECEIVING NOTES RECEIVED PT TO ROOM 325-1 FROM ICU VIA [facility].HE IS LETHARGIC.ON NC 2L O2 CONTINUOUSLY.NOTED WITH THICK BROWN SECRETIONS AND FREQUENT SUCTION NEEDED AND HE IS A MOUTH BREATHER.MIDLINE IS ON RIGHT UA,SITE IS CLEAN DRY AND INTACT.GANGRENE PRESENT ON B/L HAND AND FEET.RIGHT NARE NG TUBE PRESENT.SAFETY IS MAINTAINED AT ALL TIMES.BED IS IN LOW POSITION AND LOCKED.CALL LIGHT IS WITHIN REACH.
--- NOTE | 2018-10-14 19:00 | NUR ---
PRODUCT MARKETING CONSULTANT NOTES PT IS LYING ON BED.SUCTIONING HAS DONE NOTED WITH BROWN THICK SECRETION.IV LINE IS IN PLACE AND IV HEPARIN IS GOING.ENDORSED TO RN X RAY RN FOR SARINA.
--- NOTE | 2018-10-14 19:30 | NUR ---
PRECISION LENS POLISHER NOTES RECEIVED ON BED A/O X1,LETHARGIC,DNR/DNI STATUS.ON HEPARIN DRIP AT 1750 UNITS/HR VIA IV PUMP,INFUSING ON ERNESTO MIDLINE.NOTED BILATERAL UPPER AND LOWER TOES GANGRENOUS DUE TO POOR CIRCULATION.WITH GT FEEDING OF NEPHRO AT 45ML/HR RATE VIA NGT/RIGHT NARES.WITH RIGHT GROIN HD CATH,EVERYDAY HD PER REPORT.ON [employer] MATTRESS FOR SKIN MANAGEMENT.REPOSITION PER PROTOCOL,SUCTION ORALLY NEEDED.WILL CONTINUE TO MONITOR STATUS.
[2018-10-14 19:39] LABS: OCCULT BLOOD STOOL NEGATIVE (NEGATIVE)
--- NOTE | 2018-10-14 21:00 | NUR ---
BUSINESS PLANNING MANAGER NOTES RT AT BEDSIDE TO GIVE BREATHING TREATMENT AND SUCTION ORALLY NEEDED.
[2018-10-14] MEDS: CEFAZOLIN 2 GM in IV D5W 50 ML IV SCH (21:05)
[2018-10-15] MEDS: ACETYLCYSTEINE 10% SOLN 400 MG/4 ML VIAL NEB SCH ×4 (00:01→22:44)
[2018-10-15 00:07] VITALS: BP 128/65
[2018-10-15 04:00] VITALS: BP 118/74
--- NOTE | 2018-10-15 06:24 | NUR ---
MS RN NOTES HEPARIN DRIP REMAINS AT 1750 UNITS PER HOUR.NO BLEEDING NOTED.DNR/DNI STATUS.NGT FEEDING TOLERATED WELL.IN NO ACUTE DISTRESS.[facility] SARINA.
--- NOTE | 2018-10-15 07:30 | NUR ---
RN INTAKE NOTES PT IN BED, LETHARGIC, NOT IN DISTRESS, NO FACIAL GRIMACING, ON HEPARIN DRIP, NO SIGNS OF BLEEDING NOTED, REPOSITIONED FOR COMFORT, KEPT TEST PREPARATION TUTOR BED.
[2018-10-15] MEDS: ALBUTEROL FS 2.5 MG/0.5 ML VIAL.NEB NEB PRN ×2 (07:40→14:50)
[2018-10-15 08:11] LABS: BASOPHILS # (AUTO) 0.1 /CMM (0.0-0.2); BASOPHILS % (AUTO) 0.3 % (0.0-2.0); EOSINOPHILS % (AUTO) 0.3 % (0.0-6.0); HEMATOCRIT 25 % (39-51); HEMOGLOBIN 7.9 g/dL (13.5-17.5); LYMPHOCYTES # (AUTO) 0.7 /CMM (0.8-4.8); LYMPHOCYTES % (AUTO) 3.8 % (20.0-44.0); MEAN CORPUSCULAR HGB CONC 31 g/dl (31.0-36.0); MEAN CORPUSCULAR VOLUME 89 fL (80-96); MONOCYTES # (AUTO) 1.5 /CMM (0.1-1.30); MONOCYTES % (AUTO) 7.4 % (2.0-12.0); NEUTROPHILS # (AUTO) 17.4 /CMM (1.8-8.9); NEUTROPHILS % (AUTO) 88.2 % (43.0-81.0); RED BLOOD CELL COUNT(AUTO) 2.82 MIL/uL (4.5-6.0); WHITE BLOOD COUNT (AUTO) 19.7 K/uL (4.3-11.0)
[2018-10-15 08:18] LABS: CALCIUM, SERUM 6.4 mg/dL (8.5-10.1); CREATININE 6.7 mg/dL (0.6-1.3); MAGNESIUM 2.5 mg/dL (1.8-2.4); POTASSIUM 4.1 mmol/L (3.5-5.1)
[2018-10-15 08:20] LABS: PHOSPHORUS 8.2 mg/dL (2.5-4.9)
[2018-10-15] MEDS: HEPARIN INFUSION/D5W 500 ML IV PRN (08:25)
[2018-10-15 08:27] VITALS: BP 113/56
[2018-10-15 08:36] LABS: PLATELET COUNT (AUTO) 48 /CMM (150-450)
[2018-10-15] MEDS: SEVELAMER CARBONATE 0.8 GM POWD.PACK GT SCH ×3 (08:41→17:11)
[2018-10-15] MEDS: PANTOPRAZOLE 40 MG/PACK PACK NG SCH (08:48)
[2018-10-15] MEDS: LACTOBACILLUS RHAMNOSUS GG 1 EACH CAP.SPRINK PO SCH ×2 (08:48→17:11)
[2018-10-15] MEDS: CARVEDILOL 3.125 MG TABLET PO SCH ×2 (08:48→21:02)
[2018-10-15] MEDS: ASPIRIN 81 MG TAB.CHEW PO SCH (08:48)
[2018-10-15] MEDS: PROSOURCE / PROSTAT (PYXIS) 30 ML UDC GT SCH ×2 (09:25→17:11)
[2018-10-15] MEDS: CEFAZOLIN 2 GM in IV D5W 50 ML IV SCH ×2 (09:31→20:43)
[2018-10-15 10:25] LABS: LYMPHOCYTES % (MANUAL) 3 % (16-48); MONOCYTES % (MANUAL) 5 % (0-11.0); NEUTROPHILS % (MANUAL) 92 (42-76)
--- NOTE | 2018-10-15 13:08 | NUR ---
RN MS NOTES PT IN BED, ASLEEP, EASY TO AROUSE, VERBALLY RESPONSIVE, DENIES PAIN, NOT IN DISTRESS, NGT FEEDING INFUSING WELL, DIALYSIS ONGOING, RADHA GAME PRODUCER INFORMED OF ABNORMAL LABS, KEPT PT COMFORTABLE AND PRODUCTION SUPERVISOR TRAINEE BED.
[2018-10-15] MEDS: ARGATROBAN 250 MG in IV D5W 247.5 ML IV PRN (18:16)
[2018-10-15] MEDS: NEPRO 1,000 ML BOTTLE GT PRN (18:25)
--- NOTE | 2018-10-15 19:00 | NUR ---
RN MS NOTES PT IN BED, ASLEEP, EASY TO AROUSE, VERBALLY RESPONSIVE, DENIES PAIN, RESPIRATIONS NORMAL, NGT FEEDING INFUSING WELL, TOLERATING WELL, DR HNUTER ORDERED TO START ARGATROBAN IV INFUSION PER PROTOCOL, SPOKE TO NENA OF PHARMACY, PM MEDS GIVEN, TURNED AND REPOSITIONED Q2 HOURS.
--- NOTE | 2018-10-15 19:15 | NUR ---
RN INITIAL NOTES: RECEIVED REPORT FROM MAITE LYN, PT IN BED, MOSTLY LETHARGIC BUT ABLE TO ANSWER YES OR NO AT TIMES. PT S/P HD TODAY WITH 2L OUTPUT, HD CATH IN GROIN AREA INTACT, NO ACTIVE BLEEDING NOTED. PT HAS RIGHT UPPER ARM MIDLINE IN PLACED, PATENT AND FLUSHING WELL, INFUSING WITH ARGATROBAN DRIP STARTED BY DAY RN PER PROTOCOL, RUNNING AT 10.17ML/HR (2MCG/KG/MIN, PT'S WEIGHT 80). PT HAS NGTUBE IN PLACED INSERTED ON RIGHT NARE, SECURED PROPERLY. NO FACIAL GRIMACE NOTED, PT APPEARS CALM AND COMFORTABLE, WITH 2L OXYGEN VIA NC, RESPIRATION EVEN AND UNLABORED. PT'S FINGERS AND LEGS INCLUDING FEET NOTED TO BE PURPLE,GANGRENOUS, AWARE, TX ORDERED. PER REPORT TO CONTACT PHARMACIST REGARDING EACH RESULT OF PTT DRAW, THEY WILL BE THE ONE TO GIVE THE TITRATION FOR ARGATROBAN DRIP. SAFETY PRECAUTIONS FOR FALL INITIATED, CALL LIGHT IN REACH, WILL CONTINUE MONITORING PT.
--- NOTE | 2018-10-15 19:18 | NUR ---
RN NOTES: RATE FOR ARGATROBAN IS 10ML/HR (2MCG/KG/MIN, BODY WEIGHT USE IS 80KG)
--- NOTE | 2018-10-15 19:20 | NUR ---
rn notes regarding rate of argatroban drip in pump: using paper protocol attached to pt's chart, pt weight used when starting drip was 80kg, 2mcg/kg/min was used, and give a corresponding rate of 10ml/hr in the paper protocol. hence, upon checking in the iv pump used, using all the information provided, it gives a total of 10.17ml/hr rate in the pump, as Argatroban drip was pre program in the [facility] Pump. This was relayed to pharmacist and hemodialysis charge nurse.
[2018-10-15 20:00] VITALS: BP 115/69
--- NOTE | 2018-10-15 20:29 | NUR ---
RN NOTES RE PTT AND PHARMACIST: RESULT OF PTT POSTED IN LAB TAB, NOTED 61.3, PREVIOUS RESULT WAS 31.3, CONTACTED PHARM SPOKED WITH ELODIA THE PHARMACIST, STATED "TO MAINTAIN SAME RATE, NEXT PTT AFTER 4HRS, ALSO STATED IF LEVEL SUDDENLY GO DOWN, CALL MD, WHEN ASKED WHAT PARAMETER, STATED UNSURE". INFORMED GRADE SCHOOL TEACHER. WILL CONTINUE TO MONITOR.
--- NOTE | 2018-10-15 20:45 | NUR ---
GTUBE CHECK: PT ABDOMEN SOFT TO TOUCH,. WITH ACTIVE BOWEL SOUND HEARD UPON AUSCULTATION OF ABDOMEN, PT HAS NGTUBE IN PLACE INSERTED ON RIGHT NARE, PROPERLY SECURED. GTUBE PATENCY CHECK, PLACEMENT CHECKED, ABLE TO FLUSH WITHOUT ANY RESISTANCE. DUE MEDS ADMINISTERED. WILL CONTINUE TO MONITOR
[2018-10-15 21:00] VITALS: BP 121/57
--- NOTE | 2018-10-15 23:22 | NUR ---
RN NOTES: LAB IN THE UNIT FOR PTT DRAW.
[2018-10-16] VITALS: BP 113/77
--- NOTE | 2018-10-16 00:32 | NUR ---
RN NOTES: CONTACTED INDUSTRIAL LABORER TREY CARTER REGARDING PTT RESULT AWAITING CALLBACK
--- NOTE | 2018-10-16 00:35 | NUR ---
CRITICAL RESULT PTT 89.6 RECEIVED CRITICAL LAB RESULT FOR PTT RESULT IS 89.6 REPORTED BY TRISH YOO. CONTACTED PHARMACIST [facility], IT WAS INSTRUCTED TO CALL [facility] FOR EVERY RESULT OF PTT, SPOKED WITH MONTY? STATED SHE'S NOT AWARE OF THE PROTOCOL, RN FAXED THE ARGATROBAN PROTOCOL TO THE [facility] AWAITING CALL BACK Addendum: 10/16/18 at 0038 by DELFINA KINCIAD RN CORRECTION OF ENTRY: CRITICAL RESULT PTT 89.6 RECEIVED CRITICAL LAB RESULT FOR PTT RESULT IS 89.6 REPORTED BY TRISH YOO. CONTACTED PHARMACIST [facility], IT WAS INSTRUCTED TO CALL [facility] FOR EVERY RESULT OF PTT, SPOKED WITH MIRIAN STATED SHE'S NOT AWARE OF THE PROTOCOL, RN FAXED THE ARGATROBAN PROTOCOL TO THE [facility] AWAITING CALL BACK
--- NOTE | 2018-10-16 00:56 | NUR ---
RN NOTES: SPOKED WITH SHIPPING CLERK CRATING EPIC HEEL COVERER, RELAYED THE SITUATION, PER HEEL COVERER TO HAVE THE PHARMACIST SHIPPING CLERK CRATING FOLLOW THE PROTOCOL FOR ARGATROBAN DRIP TITRATION
--- NOTE | 2018-10-16 01:05 | NUR ---
RN NOTES: ASKED HELP FROM ADZ WORKER ED, TOOK PT'S NAME AND ROOM NUMBER, PER ADZ WORKER HE WILL CALL BACK, RN NEONATAL AWARE OF THE SITUATION
--- NOTE | 2018-10-16 01:12 | NUR ---
RN NOTES: RECEIVED CALL FROM RAISER HELPER PHARMACIST, REGARDING ARGATROBAN DRIP. SHE STATED THAT PTT 89.6 IS 3X HIGHER/ABOVE THE BASELINE, PER PHARMACIST TO DECREASE THE RATE BY 2ML/HR. CURRENT RATE IS 10ML/HR, WILL DECREASE BY 2ML/HR, NEW RATE WILL BE 8ML/HR, THEN DRAW PTT AFTER 3HRS. AND CALL PHARMACY FOR RESULT
--- NOTE | 2018-10-16 01:31 | NUR ---
RN NOTES: CONTACTED PHARMACIST BILLING TYPIST, INFORMED THAT EVERY TIME RATE WILL BE CHANGE TO 8ML/HR, DOSE RATE ALSO CHANGE INTO 1.606MCG/KG/MIN, PER PHARMACIST, THAT'S OKAY WE CHange rate dose rate also change
--- NOTE | 2018-10-16 01:32 | NUR ---
RN NOTES: INFORMED CLINICAL CONSULTANT PHARMACIST THAT ARGATROBAN IS PRE PROGRAM IN THE PUMP, AND BECAUSE WE ARE USING 2MCG/KG/MIN, AND BODY WEIGHT 80KG, PUMP AUTOMATICALLY SHOW A RATE OF 10.17ML/HR IN THE PUMP, BUT BASED ON PAPER ARGATROBAN PROTOCOL, RATE SHOULD ONLY BE 10ML/HR. THIS WAS RELAYED TO PHARMACIST AND STATED ITS OKAY IF THAT'S WHAT SHOWING IN THE PUMP, ITS PREPROGRAMMED. SINCE WE ARE CHANGING THE RATE, FROM 10ML/HR (10.17ml/hr SHOWN IN THE PUMP) DECREASE BY 2ML/HR PER PROTOCOL, NEW RATE IS 8ML/HR (WHICH IS 8.17ML/HR, SHOWN IN THE PUMP EQUIVALENT TO 1.606 MCG/KG/MIN). PHARMACIST AWARE THAT EVERY TIME RATE WAS CHANGE, THE DOSE RATE ALSO CHANGE. PER CLINICAL CONSULTANT PHARMACIST MIRIAN, THAT'S OKAY, WE CHANGE RATE, DOSE RATE ALSO CHANGE. CHANGING OF RATE IN THE PUMP DONE/PERFORMED WITH ANOTHER RN FOR VERIFICATION.
--- NOTE | 2018-10-16 02:30 | NUR ---
RN NOTES: CREAMERY WORKER HAD A HARD TIME DRAWING BLOOD, ASKED FOR ANOTHER CREAMERY WORKER TO DRAW
--- NOTE | 2018-10-16 04:00 | NUR ---
RN NOTES: AWAITING RESULT OF PTT
--- NOTE | 2018-10-16 04:06 | NUR ---
CRITICAL RESULT PTT 98.3 CRITICAL LAB, PTT RESULT OF 98.3, REPORTED BY TRISH YOO, CONTACTED PHARMACIST BUSINESS APPLICATIONS SPECIALIST FOR TITRATION PROTOCOL, TUYERE FITTER AWARE OF LAB RESULT PER TUYERE FITTER TO HAVE PHARMACIST FOLLOW PROTOCOL ACCORDINGLY.
--- NOTE | 2018-10-16 04:15 | NUR ---
TITRATION FOR ARGATROBAN DRIP: RECEIVED CALL FROM MIRIAN MARCUM INDUCTION FURNACE OPERATOR, PER ARGATROBAN PROTOCOL, DECREASE RATE BY 2ML/HR. CURRENT RATE IS 8ML/HR (8.17ML/HR IN THE PUMP DUE TO PRE PROGRAMMED, PHARMACIST AWARE OF THIS, STATED ITS OKAY), 8ML/HR DECREASE BY 2ML/HR, NEW RATE WILL BE 6ML/HR (6.17ML/HR SHOWING IN THE PUMP) EQUIVALENT TO 1.213 MCG/KG/MIN. CHANGE OF RATE DONE WITH ANOTHER RIKI JEFFREY. NEXT PTT DRAW AFTER 3HRS, 0700AM. WILL FOLLOW ACCORDINGLY.
--- NOTE | 2018-10-16 06:47 | NUR ---
rn closing notes: pt remains with ngtube inserted in his right nare, properly secured, currently receiving feeding of nephro 45ml/hr, no residual obtained, patency check performed. ronal midline patent and flushing well, infusing with argatroban drip currently at 1.213 mcg/kg/hr equivalent to 6ml/hr (6.17ml/hr as appears in the pump, as it was pre program), pharmacy aware of this issue. next PTT draw at 0700am. no s/s of bleeding noted. pt remains on semi fowlers with hob 30 degrees. vs remains stable, needs attended. safety precautions for fall initiated, call light in reach, will endorse to day rn for continuity of care.
[2018-10-16 07:38] LABS: BASOPHILS # (AUTO) 0.1 /CMM (0.0-0.2); BASOPHILS % (AUTO) 0.5 % (0.0-2.0); EOSINOPHILS % (AUTO) 0.4 % (0.0-6.0); HEMATOCRIT 27 % (39-51); HEMOGLOBIN 8.5 g/dL (13.5-17.5); LYMPHOCYTES # (AUTO) 0.6 /CMM (0.8-4.8); LYMPHOCYTES % (AUTO) 2.4 % (20.0-44.0); MEAN CORPUSCULAR HGB CONC 32 g/dl (31.0-36.0); MEAN CORPUSCULAR VOLUME 88 fL (80-96); MONOCYTES # (AUTO) 1.8 /CMM (0.1-1.30); MONOCYTES % (AUTO) 7.8 % (2.0-12.0); NEUTROPHILS # (AUTO) 20.7 /CMM (1.8-8.9); NEUTROPHILS % (AUTO) 88.9 % (43.0-81.0); PLATELET COUNT (AUTO) 58 /CMM (150-450); RED BLOOD CELL COUNT(AUTO) 3.02 MIL/uL (4.5-6.0); WHITE BLOOD COUNT (AUTO) 23.2 K/uL (4.3-11.0)
[2018-10-16 07:55] LABS: CALCIUM, SERUM 6.4 mg/dL (8.5-10.1); CREATININE 5.8 mg/dL (0.6-1.3); MAGNESIUM 2.5 mg/dL (1.8-2.4); PHOSPHORUS 6.7 mg/dL (2.5-4.9); POTASSIUM 3.9 mmol/L (3.5-5.1)
[2018-10-16 08:00] VITALS: BP 123/69
[2018-10-16 08:44] LABS: LYMPHOCYTES % (MANUAL) 4 % (16-48); MONOCYTES % (MANUAL) 5 % (0-11.0); NEUTROPHILS % (MANUAL) 91 (42-76)
--- NOTE | 2018-10-16 08:44 | NUR ---
0800 RECEIVED PATIENT IN BED ALERT AND LETHARGIC WITH BILATERAL UPPER AND LOWER EXTREMITIES BLUE AND NECROTIC , OXYGEN 3LITER NC ON SAT 97% NGT FEEDING VIA RT NARES INFUSING AT 45MLS/HR IV ARGATROBAN INFUSING 6MLS/HR PTT DUE AT 0700 LAB IN UNABLE TO DRAW , SHE SAID WILL COME BACK SR X2 UP CALL LIGHT WITHIN REACH NO S/S OF PAIN AT THIS TIME
[2018-10-16] MEDS: ACETYLCYSTEINE 10% SOLN 400 MG/4 ML VIAL NEB SCH ×3 (09:07→23:19)
--- NOTE | 2018-10-16 10:15 | NUR ---
PTT 101 result called to pharmacy order to decrease argatroban drip rate to 2,5ml/hr next ptt in 2 hours will continue to monitor
[2018-10-16] MEDS: LACTOBACILLUS RHAMNOSUS GG 1 EACH CAP.SPRINK PO SCH ×2 (10:42→18:54)
[2018-10-16] MEDS: SEVELAMER CARBONATE 0.8 GM POWD.PACK GT SCH ×3 (10:42→18:54)
[2018-10-16] MEDS: CARVEDILOL 3.125 MG TABLET PO SCH ×2 (10:43→21:00)
[2018-10-16] MEDS: PANTOPRAZOLE 40 MG/PACK PACK NG SCH (10:43)
[2018-10-16] MEDS: PROSOURCE / PROSTAT (PYXIS) 30 ML UDC GT SCH ×2 (10:45→18:55)
[2018-10-16] MEDS: CEFAZOLIN 2 GM in IV D5W 50 ML IV SCH ×2 (10:46→21:00)
[2018-10-16] MEDS: ARGATROBAN 250 MG in IV D5W 247.5 ML IV PRN (11:31)
[2018-10-16] MEDS ORDERED: TPN BAG #1 IV PRN ×8 (14:30)
[2018-10-16 16:00] VITALS: BP 126/60
--- NOTE | 2018-10-16 16:00 | NUR ---
Per Dr Jade hold Argatroban drip till AM RECHECK PTT IN AM AND START DRIP IF PTT IS DOWN
--- NOTE | 2018-10-16 18:00 | NUR ---
NGT REPLACED CHEST X RAY ORDERED START FOR PLACEMENT VERIFICATION
--- NOTE | 2018-10-16 18:32 | NUR ---
NGT VERIFIED BY MR BENZ , FROM XRAY HE SAID CAN USE TUBE
--- NOTE | 2018-10-16 19:10 | NUR ---
RN MS OPENING NOTES RECEIVED PATIENT IN BED, AWAKE AND ALERT AND ORIENTED X1 , ABLE TO ANSWER YES OR NO QUESTIONS, ON 02 2L VIA NC, RESPIRATIONS EVEN AND UNLABORED WITH EQUAL RISE AND FALL OF CHEST, DENIES PAIN OR DISCOMFORT AT THIS TIME, AND APPEARS TO BE COMFORTABLE. NGT TO LEFT NARES, PROPERLY SECURED INTACT AND PATENT, NEPHRO RUNNING ORDERED AND TOLERATING WELL. RIGHT UPPER ARM MIDLINE DRESSING INTACT AND PATENT, NO REDNESS, NO INFILTRATION PRESENT. BILATERAL UPPER AND LOWER EXT GANGRENE, KEEP CLEAN AND DRY AND OFFLOADED. ORIENTED TO STAFF AND CALL LIGHT AND KEPT WITHIN REACH, SAFETY PRECAUTIONS IN PLACE, HEAD OF BED ELEVATED FOR ASPIRATION PRECAUTIONS, LOW BED AND LOCKED, BED ALARM IN PLACE, ALL NEEDS ATTENDED AT THIS TIME, REMAINS COMFORTABLE WILL CONTINUE TO MONITOR AND ATTEND TO NEEDS
--- NOTE | 2018-10-16 19:23 | NUR ---
REPORT GIVEN TO NIGHT NURSE PATIENT IS STABLE NO ACUTE DISTRESS AT THIS TIME
[2018-10-16 20:00] VITALS: BP 127/69
--- NOTE | 2018-10-16 20:00 | NUR ---
RN MS NOTES UPON CHANGING PATIENT NOTED SACRAL WITH REDDENED COLOR, PATIENT OFFLOADED PICTURE TAKEN PLACED IN CHART SKIN REMAINS INTACT AWAITING WOUND CARE CONSULT. PRESSURE RELIEVING MATTRESS IN PLACE.
--- NOTE | 2018-10-16 20:15 | NUR ---
SEEN BY DR. HUNTER WITH NO NEW ORDERS AT THIS TIME, PROCEED WITH AM LABS FOR PTT AND PT INR AND HOLD ARGATROBAN AT THIS TIME, WHEN LABS RESULTS TO NOTIFY HER.
[2018-10-16] MEDS ORDERED: LEVOFLOXACIN 500 MG /D5W 100ML 100 ML IV ONE ×2 (21:41→22:00)
[2018-10-16] MEDS ORDERED: AZTREONAM 1 G VIAL ONE (22:52)
[2018-10-16] MEDS: AZTREONAM 500 MG in IV NS 0.9% 50 ML IV SCH (23:04)
[2018-10-17] VITALS (10 sets, daily range): BP systolic 115–133; BP diastolic 55–78
[2018-10-17] MEDS ORDERED: AZTREONAM 1 G VIAL ONE (01:38)
[2018-10-17] MEDS: NEPRO 1,000 ML BOTTLE GT PRN ×2 (01:53→17:35)
--- NOTE | 2018-10-17 02:00 | NUR ---
RN MS NOTES UPON ASSESSMENT NOTED PATIENT MOVING LEGS TOWARDS RIGHT SIDERAIL " STATING I WANT TO GET UP". REDIRECTED PATIENT, EDUCATED UNABLE TO GET UP AT THIS TIME. REPOSITIONED LEGS BACK TO MIDDLE OF BED WITH PILLOWS FOR OFFLOADING, DURING ASSESSMENT NOTED PATIENT RIGHT ANTERIOR FOOT GANGRENE NOTED WITH AN AREA OF SKIN THAT HAS PEELED, WOUND CARE PICTURE TAKEN, WOUND CARE CONSULT PLACED, MEPILEX PLACED FOR SKIN PROTECTION, REMINDED PATIENT TO NOT PLACE LEGS AGAINST SIDE RAILS. WILL CONTINUE TO MONITOR.
[2018-10-17] MEDS: AZTREONAM 500 MG in IV NS 0.9% 50 ML IV SCH ×3 (06:03→21:40)
--- NOTE | 2018-10-17 06:25 | NUR ---
RN MS CLOSING NOTES PATIENT IN BED, AWAKE AND ALERT AND ORIENTED X1 , ABLE TO ANSWER YES OR NO QUESTIONS, ON 02 2L VIA NC, RESPIRATIONS EVEN AND UNLABORED WITH EQUAL RISE AND FALL OF CHEST, DENIES PAIN OR DISCOMFORT AT THIS TIME APPEARS TO BE COMFORTABLE. NGT TO LEFT NARES, PROPERLY SECURED INTACT AND PATENT, NEPHRO RUNNING ORDERED AND TOLERATING WELL, NO RESIDUALS. RIGHT UPPER ARM MIDLINE DRESSING INTACT AND PATENT, NO REDNESS, NO INFILTRATION PRESENT. BILATERAL UPPER AND LOWER EXT GANGRENE, KEPT CLEAN AND DRY AND OFFLOADED BLE GANGRENE OFFLOADED. CALL LIGHT KEPT WITHIN REACH, SAFETY PRECAUTIONS IN PLACE, HEAD OF BED ELEVATED FOR ASPIRATION PRECAUTIONS, LOW BED AND LOCKED, BED ALARM IN PLACE, ALL NEEDS ATTENDED AT THIS TIME, REMAINS COMFORTABLE WILL CONTINUE TO MONITOR AND ATTEND TO NEEDS AND ENDORSE TO NEXT SHIFT.
--- NOTE | 2018-10-17 07:30 | NUR ---
MS RN OPENING NOTE RECEIVED PT IN BED, ALERT AND ORIENTED TO NAME AND YEAR. EYES OPEN SPONTANEOUSLY TO VERBAL AND TACTILE STIMULI, PT IS ABLE TO ANSWER BASIC YES AND NO QUESTIONS. NO ACUTE DISTRESS NOTED AT THIS TIME, BREATHING IS EVEN AND UNLABORED ON 2L NC. NG TUBE TO THE LEFT NARE IS SECURED, PATENT, AND INFUSING NEPHRO FEEDING @ 45ML/HR ORDERED WITH NO S/S OF GI DISTRESS AT THIS TIME. LEFT UPPER ARM MIDLINE IS PATENT, CLEAN DRY AND INTACT WITHOUT REDNESS OR SWELLING. NO S/S OF BLEEDING AT THIS TIME. ASPIRATION PRECAUTIONS MAINTAINED. BLE OFFLOADED AND PT IS ON SPECIALTY MATTRESS. ALL NEEDS ATTENDED TO. BED IS LOCKED AND IN LOWEST POSITION, SIDE RAILS UP X2, BED ALARM ON, CALL LIGHT AND POSSESSIONS WITHIN REACH.
[2018-10-17 07:53] LABS: BASOPHILS % (AUTO) 0.1 % (0.0-2.0); HEMATOCRIT 22 % (39-51); LYMPHOCYTES # (AUTO) 0.5 /CMM (0.8-4.8); LYMPHOCYTES % (AUTO) 3.4 % (20.0-44.0); MEAN CORPUSCULAR HGB CONC 32 g/dl (31.0-36.0); MEAN CORPUSCULAR VOLUME 86 fL (80-96); MONOCYTES # (AUTO) 1.2 /CMM (0.1-1.30); MONOCYTES % (AUTO) 7.9 % (2.0-12.0); NEUTROPHILS # (AUTO) 13.4 /CMM (1.8-8.9); NEUTROPHILS % (AUTO) 88.6 % (43.0-81.0); PLATELET COUNT (AUTO) 61 /CMM (150-450); RED BLOOD CELL COUNT(AUTO) 2.52 MIL/uL (4.5-6.0); WHITE BLOOD COUNT (AUTO) 15.1 K/uL (4.3-11.0)
[2018-10-17] MEDS: ACETYLCYSTEINE 10% SOLN 400 MG/4 ML VIAL NEB SCH ×3 (07:56→23:44)
--- NOTE | 2018-10-17 08:15 | NUR ---
MS RN NOTE SPOKE WITH MAGDIEL IN PHARMACY AND REQUESTED ANCEF IV. PER MAGDIEL THEY WILL SEND UP.
[2018-10-17 08:23] LABS: CALCIUM, SERUM 7.2 mg/dL (8.5-10.1); CREATININE 7.2 mg/dL (0.6-1.3); MAGNESIUM 2.7 mg/dL (1.8-2.4); POTASSIUM 3.9 mmol/L (3.5-5.1)
[2018-10-17 08:29] LABS: PHOSPHORUS 8.3 mg/dL (2.5-4.9)
[2018-10-17] MEDS: PROSOURCE / PROSTAT (PYXIS) 30 ML UDC GT SCH ×2 (08:29→17:35)
[2018-10-17] MEDS: SEVELAMER CARBONATE 0.8 GM POWD.PACK GT SCH ×3 (08:29→17:35)
[2018-10-17] MEDS: LACTOBACILLUS RHAMNOSUS GG 1 EACH CAP.SPRINK PO SCH ×2 (08:29→17:35)
[2018-10-17] MEDS: PANTOPRAZOLE 40 MG/PACK PACK NG SCH (08:30)
[2018-10-17] MEDS: CARVEDILOL 3.125 MG TABLET PO SCH ×2 (08:30→21:43)
--- NOTE | 2018-10-17 08:30 | NUR ---
MS RN CRITICAL LAB [facility] INFORMED RADHA HORTA NP REGARDING PHOS LEVEL 8.3 AND BUN LEVEL OF 128. PER RADHA HORTA, PT NEEDS HD AND THERE ARE NO NEW ORDERS AT THIS TIME.
--- NOTE | 2018-10-17 08:55 | NUR ---
MS RN CRITICAL LAB [facility] INFORMED RADHA HORTA NP AND DR. HUNTER REGARDING APTT LEVEL >170 AND HGB LEVEL 7.0. PER RADHA HORTA NP NO NEW ORDERS AT THIS TIME. PER DR. HUNTER CONTINUE TO HOLD ARGATROBAN.
[2018-10-17 09:01] LABS: BAND % (MANUAL) 2 % (0.0-5.0); EOSINOPHILS % (MANUAL) 2 % (0-4); LYMPHOCYTES % (MANUAL) 4 % (16-48); MONOCYTES % (MANUAL) 5 % (0-11.0); NEUTROPHILS % (MANUAL) 87 (42-76)
[2018-10-17] MEDS: CEFAZOLIN 2 GM in IV D5W 50 ML IV SCH ×2 (09:43→21:01)
--- NOTE | 2018-10-17 10:22 | NUR ---
MS RN NOTE INFORMED RADHA HORTA NP REGARDING PROCALCITONIN LEVEL OF 2.94. NO NEW ORDERS AT THIS TIME.
--- NOTE | 2018-10-17 12:29 | NUR ---
MS RN NOTE SPOKE WITH [employer] REGARDING AZACTAM IV, PER PHARMACY THEY WILL SEND SHORTLY. AWAITING ARRIVAL
--- NOTE | 2018-10-17 13:48 | NUR ---
MS RN NOTE SPOKE WITH PHARMACY AGAIN REGARDING AZACTAM IV, PER PHARMACY THEY WILL SEND UP SHORTLY .
[2018-10-17 17:50] LABS: HEMOGLOBIN 6.6 g/dL (13.5-17.5)
--- NOTE | 2018-10-17 18:51 | NUR ---
MS RN CLOSING NOTE PT IN BED, ALERT AND ORIENTED TO NAME AND YEAR. EYES OPEN SPONTANEOUSLY TO VERBAL AND TACTILE STIMULI, PT IS ABLE TO ANSWER BASIC YES AND NO QUESTIONS. NO ACUTE DISTRESS NOTED AT THIS TIME, BREATHING IS EVEN AND UNLABORED ON 2L NC. NG TUBE TO THE LEFT NARE IS SECURED, PATENT, AND INFUSING NEPHRO FEEDING @ 45ML/HR ORDERED WITH NO S/S OF GI DISTRESS AND LESS THAN 5ML OF RESIDUALS FOR THE DURATION OF THE SHIFT. LEFT UPPER ARM MIDLINE IS PATENT, CLEAN DRY AND INTACT WITHOUT REDNESS OR SWELLING. NO S/S OF BLEEDING AT THIS TIME. ASPIRATION PRECAUTIONS MAINTAINED. BLE OFFLOADED AND PT IS ON 1ST STEP AIR MATTRESS. ADDITIONAL WOUND CONSULT PENDING FOR RIGHT LEG WOUND. ADLS PROVIDED AND PT TURNED AND REPOSITION Q2H FOR THE DURATION OF THE SHIFT. WOUND CARE COMPLETED ORDERED. PT HAS ORDERS FOR 1 UNIT PRBC TO BE TRANSFUSED STAT FOR HGB: 6.6 AND HCT: [address] HUNTER. ADDITIONAL TYPE AND SCREEN DRAWN AND RESULTS PENDING. ALL NEEDS ATTENDED TO. BED IS LOCKED AND IN LOWEST POSITION, SIDE RAILS UP X2, BED ALARM ON, CALL LIGHT AND POSSESSIONS WITHIN REACH. WILL ENDORSE TO SOFT WORK WRAPPER EXAMINER NURSE FOR CONTINUITY OF CARE.
--- NOTE | 2018-10-17 19:31 | NUR ---
MS RN RECEIVED PT IN BED A/O X 1-2, RESPIRATIONS EVEN AND UNLABORED. NG TUBE TO THE LEFT NARES IS SECURED, PATENT AND INFUSING NEPHRO FEEDING @ 45ML/HR ORDERED. NOT IN DISTRESS, STABLE. AWAITING BLOOD ORDER. SAFETY MEASURES IN PLACE WILL CONT TO MTR.
[2018-10-17] MEDS ORDERED: diphenhydrAMINE HCL 50 MG/ML VIAL ONE (21:48)
[2018-10-17] MEDS ORDERED: ACETAMINOPHEN 325 MG TABLET ONE (21:50)
--- NOTE | 2018-10-17 22:15 | NUR ---
GAVE TYLENOL 650 MG VIA L NARES TUBE AND BENADRYL 25 MG IVP PER ORDER PRIOR BLOOD TRANSFUSION.
[2018-10-18 00:10] VITALS: BP 116/77
[2018-10-18 00:40] VITALS: BP 130/71
[2018-10-18 01:05] VITALS: BP 130/76
--- NOTE | 2018-10-18 01:05 | NUR ---
MS RN NOTES S/P 1 PRBC UNIT TRANSFUSION WITH NO A/R NOTED PT TOLERATED PROCEDURE WELL. WILL CONT TO MTR VS STABLE
[2018-10-18 02:26] LABS: HEMOGLOBIN 8.3 g/dL (13.5-17.5)
[2018-10-18] MEDS: AZTREONAM 500 MG in IV NS 0.9% 50 ML IV SCH (04:27)
--- NOTE | 2018-10-18 06:07 | NUR ---
RN CLOSING NOTE ASLEEP AND EASILY AWAKEN, OPENS EYES A/O 1-2. PT NO S/S OF DISTRESS. STABLE. RESPIRATION EVEN AND UNLABORED. 2LPM VIA NC 02 SAT 99%. NGT TO L NARES INTACT INFUSING WELL AND TOLERATING GT FEEDING 0 RESIDUAL NOTED, TREATMENT ORDERED TO THE WOUND. GOOD SKIN CARE PROVIDED. REPOSITIONED EVERY 2 HOURS, BLE OFFLOADED AT ALL TIMES. S/P 1 PRBC WITH NO A/R NOTED. NEEDS ATTENDED AND ANTICIPATED. KEPT CLEAN AND DEY AND COMFORTABLE. NURSING CARE RENDERED, ALL WOUND PHOTOS WAS TAKEN. SAFETY MEASURES IN PLACE. ENDORSE TO NEXT SHIFT.
[2018-10-18 06:38] LABS: BASOPHILS % (AUTO) 0.4 % (0.0-2.0); EOSINOPHILS % (AUTO) 0.3 % (0.0-6.0); HEMATOCRIT 23 % (39-51); HEMOGLOBIN 7.6 g/dL (13.5-17.5); LYMPHOCYTES # (AUTO) 0.5 /CMM (0.8-4.8); LYMPHOCYTES % (AUTO) 4.6 % (20.0-44.0); MEAN CORPUSCULAR HGB CONC 33 g/dl (31.0-36.0); MEAN CORPUSCULAR VOLUME 85 fL (80-96); MONOCYTES # (AUTO) 1.1 /CMM (0.1-1.30); MONOCYTES % (AUTO) 10.8 % (2.0-12.0); NEUTROPHILS # (AUTO) 8.8 /CMM (1.8-8.9); NEUTROPHILS % (AUTO) 83.9 % (43.0-81.0); PLATELET COUNT (AUTO) 67 /CMM (150-450); WHITE BLOOD COUNT (AUTO) 10.5 K/uL (4.3-11.0)
[2018-10-18 07:08] LABS: MAGNESIUM 2.6 mg/dL (1.8-2.4); POTASSIUM 3.8 mmol/L (3.5-5.1)
--- NOTE | 2018-10-18 07:36 | NUR ---
MS RN OPENING NOTES RECEIVED PATIENT IN STABLE CONDITION. IN NO APPARENT DISTRESS. BEDSIDE RAILS ARE UPX2. BED IS LOCKED AND LOWERED. CALL LIGHT IS WITHIN REACH. IV LINE IS INTACT AND PATENT. WILL CONTINUE TO MONITOR PATIENT.
[2018-10-18] MEDS: ACETYLCYSTEINE 10% SOLN 400 MG/4 ML VIAL NEB SCH (07:55)
[2018-10-18 08:00] VITALS: BP 127/71
[2018-10-18 08:03] LABS: BAND % (MANUAL) 5 % (0.0-5.0); EOSINOPHILS % (MANUAL) 1 % (0-4); LYMPHOCYTES % (MANUAL) 6 % (16-48); MONOCYTES % (MANUAL) 6 % (0-11.0); NEUTROPHILS % (MANUAL) 82 (42-76)
[2018-10-18 09:00] VITALS: BP 127/71
[2018-10-18] MEDS: CARVEDILOL 3.125 MG TABLET PO SCH (09:00)
[2018-10-18] MEDS: SEVELAMER CARBONATE 0.8 GM POWD.PACK GT SCH (09:10)
[2018-10-18] MEDS: PANTOPRAZOLE 40 MG/PACK PACK NG SCH (09:10)
[2018-10-18] MEDS: PROSOURCE / PROSTAT (PYXIS) 30 ML UDC GT SCH (09:10)
[2018-10-18] MEDS: LACTOBACILLUS RHAMNOSUS GG 1 EACH CAP.SPRINK PO SCH (09:10)
[2018-10-18] MEDS: CEFAZOLIN 2 GM in IV D5W 50 ML IV SCH (09:21)
--- NOTE | 2018-10-18 09:26 | NUR ---
NON ADMINISTERED C[facility] DUE TO PATIENT HAVING DIALYSIS TODAY.
--- NOTE | 2018-10-18 10:57 | NUR ---
AT 1050 PATIENT WAS FOUND UNRESPONSIVE. [facility] WAS CALLED. PATIENT WAS FOUND WITH NO PULSE AND PRONOUNCED AT 1057. [facility] WAS CALLED. FAMILY WAS INFORMED. ALL LINES WERE DISCONTINUED. PATIENT WILL BE TAKEN TO THE [facility] [place] [facility].
--- NOTE | 2018-10-18 10:57 | NUR ---
RT [facility] WAS CALLED OVER HEAD. RESP TEAM ARRIVED TO ASSIST PROMPTLY. PATIENT IS DNR/DNI. PATIENT WAS FOUND TO HAVE NO VISIBLE OR AUDIBLE RESPIRATIONS AND WAS PULSELESS. PER DR BREWER REQUEST PATIENT WAS MANUALLY BAGGED WITH 100% O2 UNTIL HE COULD MAKE HIS FINAL DECISION. PATIENT WAS PRONOUNCED .
[2018-10-18] MEDS ORDERED: LEVOFLOXACIN 250 MG /D5W 50 ML 250 MG in PREMIX 1 EA IV SCH (21:00)
[2018-10-18] MEDS ORDERED: CALCIUM CARBONATE 500 MG TAB.CHEW PO SCH (21:00)
== END 2018-10-18 10:50 | disposition expired ==
LOC: ER 13:29 → TELE1 16:36 → TELE-TD 16:47 → TELE1 10-03 10:30 → ICU 10-03 16:13 → TELE-TD 10-07 11:04 → TELE1 10-08 10:08 → MEDSG1 10-09 08:21 → TELE1 10-10 14:22 → MEDSG1 10-10 16:55 → ICU 10-10 18:00 → MED 10-14 18:50 → TELE 10-14 21:23 → MED 10-15 10:16
PROVIDERS: ADMIT Student in an Organized Health Care Education/Training Program; ATTEND Registered Nurse
PROC: 5A1D70Z Performance of Urinary Filtration, Intermittent, Less than 6 Hours Per Day (ICD-10-PCS; 2018-10-02)
PROC: 5A1D70Z Performance of Urinary Filtration, Intermittent, Less than 6 Hours Per Day (ICD-10-PCS; 2018-10-03)
PROC: 5A1D70Z Performance of Urinary Filtration, Intermittent, Less than 6 Hours Per Day (ICD-10-PCS; 2018-10-04)
PROC: 30233R1 Transfusion of Nonautologous Platelets into Peripheral Vein, Percutaneous Approach (ICD-10-PCS; 2018-10-05)
PROC: 05H533Z Insertion of Infusion Device into Right Subclavian Vein, Percutaneous Approach (ICD-10-PCS; 2018-10-05)
PROC: 5A1D70Z Performance of Urinary Filtration, Intermittent, Less than 6 Hours Per Day (ICD-10-PCS; 2018-10-05)
PROC: 5A1D70Z Performance of Urinary Filtration, Intermittent, Less than 6 Hours Per Day (ICD-10-PCS; 2018-10-06)
PROC: 06HY33Z Insertion of Infusion Device into Lower Vein, Percutaneous Approach (ICD-10-PCS; principal; 2018-10-08)
PROC: 5A1D70Z Performance of Urinary Filtration, Intermittent, Less than 6 Hours Per Day (ICD-10-PCS; 2018-10-08)
PROC: 5A1D70Z Performance of Urinary Filtration, Intermittent, Less than 6 Hours Per Day (ICD-10-PCS; 2018-10-09)
PROC: 5A1D70Z Performance of Urinary Filtration, Intermittent, Less than 6 Hours Per Day (ICD-10-PCS; 2018-10-10)
PROC: 5A1D70Z Performance of Urinary Filtration, Intermittent, Less than 6 Hours Per Day (ICD-10-PCS; 2018-10-11)
PROC: 5A1D70Z Performance of Urinary Filtration, Intermittent, Less than 6 Hours Per Day (ICD-10-PCS; 2018-10-12)
PROC: 5A1D70Z Performance of Urinary Filtration, Intermittent, Less than 6 Hours Per Day (ICD-10-PCS; 2018-10-13)
PROC: 5A1D70Z Performance of Urinary Filtration, Intermittent, Less than 6 Hours Per Day (ICD-10-PCS; 2018-10-14)
PROC: 5A1D70Z Performance of Urinary Filtration, Intermittent, Less than 6 Hours Per Day (ICD-10-PCS; 2018-10-15)
PROC: 30233N1 Transfusion of Nonautologous Red Blood Cells into Peripheral Vein, Percutaneous Approach (ICD-10-PCS; 2018-10-17)
DX: T80.211A Bloodstream infection due to central venous catheter, initial encounter (principal); I21.4 Non-ST elevation (NSTEMI) myocardial infarction; J69.0 Pneumonitis due to inhalation of food and vomit; J15.9 Unspecified bacterial pneumonia; N18.6 End stage renal disease; I50.23 Acute on chronic systolic (congestive) heart failure; K72.00 Acute and subacute hepatic failure without coma; J96.01 Acute respiratory failure with hypoxia; G92 Toxic encephalopathy; D65 Disseminated intravascular coagulation [defibrination syndrome]; I63.9 Cerebral infarction, unspecified; I33.0 Acute and subacute infective endocarditis; A41.01 Sepsis due to Methicillin susceptible Staphylococcus aureus; I63.40 Cerebral infarction due to embolism of unspecified cerebral artery; I96 Gangrene, not elsewhere classified; E46 Unspecified protein-calorie malnutrition; D61.818 Other pancytopenia; E87.2 Acidosis; I13.2 Hypertensive heart and chronic kidney disease with heart failure and with stage 5 chronic kidney disease, or end stage renal disease; E83.39 Other disorders of phosphorus metabolism; D63.8 Anemia in other chronic diseases classified elsewhere; E78.1 Pure hyperglyceridemia; E87.5 Hyperkalemia; Z66 Do not resuscitate; Z87.891 Personal history of nicotine dependence; Z91.15 Patient's noncompliance with renal dialysis; Z99.2 Dependence on renal dialysis; Z95.1 Presence of aortocoronary bypass graft; R74.0 Nonspecific elevation of levels of transaminase and lactic acid dehydrogenase [LDH]; L98.8 Other specified disorders of the skin and subcutaneous tissue; I35.8 Other nonrheumatic aortic valve disorders; I25.10 Atherosclerotic heart disease of native coronary artery without angina pectoris; Y84.8 Other medical procedures as the cause of abnormal reaction of the patient, or of later complication, without mention of misadventure at the time of the procedure; F10.21 Alcohol dependence, in remission; W19.XXXA Unspecified fall, initial encounter; Y92.009 Unspecified place in unspecified non-institutional (private) residence as the place of occurrence of the external cause
CPT/HCPCS: 36415; 36569; 36600; 70450-TC; 70496-TC; 70498-TC; 70551-TC; 71045-TC; 73030-TC; 76700-TC; 80048-TC; 80053-TC; 80061-TC; 80074; 80076-TC; 80202-TC; 80305; 82140-TC; 82272-TC; 82550-TC; 82728-TC; 82784; 82803-TC; 82962-TC; 83540-TC; 83605-TC; 83735-TC; 84100-TC; 84155; 84165; 84425; 84439-TC; 84443-TC; 84484-TC; 85025-TC; 85027-TC; 85378-TC; 85385-TC; 85396; 85610-TC; 85730-TC; 86022; 86334; 86850-TC; 86921-TC; 87040-TC; 87081-TC; 90935-TC; 92526; 93307-TC; 93930-TC; 94760-TC; 94799-TC; A4216; A6253; A6402; A6403; C1750; C9113; G0378; G0480; J0456; J0610; J0690; J0696; J0883; J1200; J1644; J1815; J1956; J2405; J2543; J2997; J3370; J3475; J3480; J3490; J7030; J7040; J7050; J7060; P9016-BL; P9034-BL; Q9967